=== PATIENT | male | born 1950 | race Caucasian/White ===

== ENCOUNTER 2022-11-23 12:37 | Outpatient (CLI) | payer MEDICARE, OTHER, SELFPAY ==
[2022-11-23 13:10] LABS: Basophils Percent Auto 0.8 % (0.2-1.2); Eosinophils Absolute Auto 0.1 K/mm3 (0-0.3); Eosinophils Percent Auto 2.7 % (0-4.4); Hematocrit 42.2 % (42.0-52.0); Hemoglobin 13.7 g/dL (14.0-18.0); Immature Granulocyte Absolute 0.01 K/mm3 (0.00-0.031); Immature Granulocyte Percent A 0.2 % (0-0.5); Lymphocytes Absolute Auto 1.06 K/mm3 (0.9-3.2); Lymphocytes Percent Auto 21.6 % (18.3-44.2); Mean Corpuscular HGB Conc 32.5 g/dl (32-36); Mean Corpuscular Hemoglobin 29.2 pg (26-34); Mean Platelet Volume 10.6 fl (7.4-10.4); Monocytes Absolute Auto 0.5 K/mm3 (0.1-0.6); Monocytes Percent Auto 9.6 % (2.6-8.5); Neutrophils Absolute Auto 3.2 K/mm3 (1.3-6.7); Neutrophils Percent Auto 65.1 % (45.5-73.1); Platelet Count Result 150 k/mm3 (150-375); Red Blood Count 4.69 M/mm3 (4.6-6.20); Red Cell Distribution Width 14.4 % (11.5-14.5); White Blood Count 4.9 K/mm3 (4.5-10.0)
[2022-11-23 13:23] LABS: Alanine Aminotransferase 13 U/L (6-50); Albumin Level 4.1 g/dL (3.5-5.1); Alkaline Phosphatase 122 U/L (38-126); Anion Gap 5 mmol/L (8-16); Aspartate Amino Transferase 51 U/L (17-59); Bilirubin,Total 1.2 mg/dL (0.2-1.3); Blood Urea Nitrogen 19 mg/dL (9-20); Calcium 9.8 mg/dL (8.4-10.2); Carbon Dioxide 31 mmol/L (22-30); Chloride 104 mmol/L (98-107); Cholesterol 150 mg/dL (0-200); Estimated Glomerular Filt Rate 59; Glucose 92 mg/dL (65-110); HDL Direct 76 mg/dL; Potassium 4.1 mmol/L (3.4-5.0); Sodium 140 mmol/L (137-145); Triglycerides 45 mg/dL (<150)
[2022-11-23 13:35] LABS: LDL Cholesterol Direct 49 mg/dL
== END 2022-11-23 12:38 | disposition home or self-care (01) ==
PROVIDERS: PCP Family Medicine; Visit Provider Family Medicine
DX: E03.9 Hypothyroidism, unspecified (principal); E78.2 Mixed hyperlipidemia; I10 Essential (primary) hypertension
CPT/HCPCS: 36415; 80053; 80061; 84443; 85025

== ENCOUNTER 2022-11-28 15:54 | Outpatient (CLI) | payer MEDICARE, OTHER, SELFPAY ==
--- NOTE | ~2022-11-28 | CT_ITS ---
Non-contrast Head CT History: Head injury Technique: Axial non-contrast imaging of the brain was performed. Dose reduction technique was used on this scan by utilizing automated exposure control and iterative reconstruction technique. The dose -length product (DLP) was 605.33 mGy-cm. Findings: There is no evidence of intracranial hemorrhage, mass lesion, or acute infarct. Brain par enchyma appears normal. The ventricles and subarachnoid spaces are normal in size. The calvarium ap pears normal. Mild bilateral ethmoid sinus disease noted. The remaining visualized paranasal sinuses and mastoid air cells are clear. Impression: No intracranial abnormality seen. Mild sinus disease, as above. Reviewed, dictated and finalized at location . Impression: No intracranial abnormality seen. Mild sinus disease, as above.
== END 2022-11-28 15:55 | disposition home or self-care (01) ==
PROVIDERS: PCP Family Medicine; Visit Provider Family Medicine
DX: G20 Parkinson's disease (principal); J32.9 Chronic sinusitis, unspecified
CPT/HCPCS: 70450

== ENCOUNTER 2023-01-24 12:26 | Outpatient (CLI) | payer MEDICARE, OTHER, SELFPAY ==
[2023-01-24 13:06] LABS: Basophils Absolute Auto 0.1 K/mm3 (0.0-0.1); Eosinophils Absolute Auto 0.1 K/mm3 (0-0.3); Eosinophils Percent Auto 2.4 % (0-4.4); Hemoglobin 13.1 g/dL (14.0-18.0); Immature Granulocyte Absolute 0.01 K/mm3 (0.00-0.031); Immature Granulocyte Percent A 0.2 % (0-0.5); Lymphocytes Absolute Auto 0.86 K/mm3 (0.9-3.2); Lymphocytes Percent Auto 17.5 % (18.3-44.2); Mean Corpuscular HGB Conc 32.8 g/dl (32-36); Mean Corpuscular Hemoglobin 29.6 pg (26-34); Mean Corpuscular Volume 90.3 fl (80-100); Mean Platelet Volume 10.4 fl (7.4-10.4); Monocytes Absolute Auto 0.7 K/mm3 (0.1-0.6); Monocytes Percent Auto 14.3 % (2.6-8.5); Neutrophils Absolute Auto 3.2 K/mm3 (1.3-6.7); Neutrophils Percent Auto 64.6 % (45.5-73.1); Platelet Count Result 162 k/mm3 (150-375); Red Blood Count 4.43 M/mm3 (4.6-6.20); Red Cell Distribution Width 13.4 % (11.5-14.5); White Blood Count 4.9 K/mm3 (4.5-10.0)
== END 2023-01-24 12:27 | disposition home or self-care (01) ==
PROVIDERS: PCP Family Medicine; Visit Provider Physician Assistant
DX: D64.9 Anemia, unspecified (principal)
CPT/HCPCS: 36415; 85025

== ENCOUNTER 2023-01-27 15:26 | Outpatient (CLI) | payer MEDICARE, OTHER, SELFPAY ==
[2023-01-27 16:32] LABS: Iron 66 ug/dL (49-181)
[2023-01-27 16:41] LABS: Percent Iron Saturation 23 % (20-50)
[2023-02-01 14:16] LABS: Red Blood Cell Folate 514 ng/mL RBC (>280)
== END 2023-01-27 15:27 | disposition home or self-care (01) ==
PROVIDERS: PCP Family Medicine; Visit Provider Physician Assistant
DX: D64.9 Anemia, unspecified (principal)
CPT/HCPCS: 36415; 82607; 82747; 83540; 83550

== ENCOUNTER 2023-03-29 01:23 | Day surgery (SDC) | payer MEDICARE, OTHER, SELFPAY ==
[2023-03-17 16:17] VITALS: BMI 26.5
[2023-03-29 10:23] VITALS: BP 135/75; PULSE 67; RESP 18; TEMP 36.7; O2SAT 100
[2023-03-29] MEDS: LACTATED RINGERS 1,000 ML 150 ML IV CONT (10:37)
--- NOTE | 2023-03-29 11:12 | WPDANESEPPF ---
Anes - Initial Pre Proc Eval Procedure: Operation Date: 03/29/23 11:30 Proposed Procedures p Colonoscopy - Eric Heart MD Date/Time: 03/29/23 11:12 Surgeon: Eric Heart MD Pre Op Diagnosis: other fecal abnormalities Patient Data Age: 72 Gender: M Height: 1.78 m Weight: 84 kg Last Vital Signs Temp 98.1 F 03/29/23 10:23 Pulse 67 03/29/23 10:23 Resp 18 03/29/23 10:23 BP 135/75 03/29/23 10:23 Pulse Ox 100 03/29/23 10:23 O2 Del Method Room Air 03/29/23 10:23 Allergies Allergy/AdvReac Type Severity Reaction Status Date / Time Penicillins Allergy Intermediate rash Verified 03/29/23 10:22 quetiapine [From Seroquel] AdvReac Severe Agitated Verified 03/29/23 10:22 Home Medications Medication Instructions Recorded Confirmed Type atorvastatin 40 mg tablet 40 mg PO DAILY #90 tabs 12/26/22 03/24/23 Rx carbidopa 25 mg-levodopa 100 mg 1 tablet PO TID 03/17/23 03/24/23 History tablet ferrous sulfate 325 mg (65 mg 325 mg PO DAILY 03/17/23 03/24/23 History iron) tablet clonazepam 0.5 mg tablet 0.25 mg PO QHS #30 tabs 03/24/23 03/24/23 Rx sertraline 50 mg tablet 50 mg PO DAILY #90 tabs 03/24/23 03/24/23 Rx Patient hx anesthesia problems: none Family hx anesthesia problems: none Results Review: All pre-operative results and documents have been reviewed as part of the pre-operative evaluation. [facility] Past Medical History Medical History (Updated 03/24/23 @ 12:25 by Anuradha Lomas MD) Benign essential HTN CAD (coronary artery disease), [place] coronary artery Delusional disorder History of heart attack Hyperlipidemia MDD (major depressive disorder) Parkinson disease Surgical History Surgical History Hx of coronary angioplasty stent to LAD 2012 Family History Family History Father Heart disease Mother Hypertension Sibling Heart disease Social History Social History Social History: Smoking status: Never smoker Second hand tobacco smoke exposure: No Alcohol intake: never Substance use: never Substance use type: does not use Lack of Transportation: No Lack of Food: Never True Current Housing: I Have Housing Concerned About Future Housing: No Difficulty Paying Gas/Electric Bills: No Difficulty Paying for Meds: No Currently Unemployed: YES Education: Decline to Answer Difficulty w/ Childcare or Family Care: No Living arrangements: with family Occupation/Education: retired Gender identity (if verbalized by the patient): Male Sexual Orientation (if Verbalized by the Patient): Straight or Heterosexual Spiritual care concerns: No Agree to blood products: Yes Anes - Eval Final PreProcedure Day of Procedure 03/29/23 11:12 Patient weight: normal Heart: regular rate and rhythm Lungs: clear to auscultation Airway: Mallampati scale class II Neurological: alert and oriented Last oral intake: >/= 8 hours ASA classification: III Emergent: no Anesthetic plan: proceed Anesthesia type and monitoring: general GIVS and standard monitoring Results Review: All pre-operative results and documents have been reviewed as part of the pre-operative evaluation. Informed Consent: The patient's anesthetic plan and its attendant risks and benefits were discussed with the patient/family/POA. Questions were solicited and answers provided to the satisfaction of the patient/family/POA.
--- NOTE | 2023-03-29 11:28 | PM.HPGS ---
History of Present Illness History of Present Illness Consent: Risks, benefits, and alternatives have been discussed and questions answered. Patient agrees to proceed with procedure. Chief complaint: other fecal abnormalities Narrative: Syed Aquino is a 72 year old male with last colonoscopy 10 years ago, had + cologuard recently Review of Systems Constitutional: Constitutional: Denies headache(s) and Denies weakness Eyes: Eyes: Denies blurry vision ENT: Reports Normal hearing present, Denies headache(s) and Denies neck pain Cardiovascular: Cardiovascular: Denies chest pain and Denies dyspnea Respiratory: Respiratory: Denies dyspnea Gastrointestinal: Gastrointestinal: Reports no additional gastrointestinal complaints Genitourinary: Genitourinary: Denies dysuria Musculoskeletal: Musculoskeletal: Denies neck pain Integumentary/Breasts: Skin/Breast: Denies dry skin Neurologic: Reports Normal hearing present, Denies headache(s) and Denies weakness Psychiatric: Psychiatric: Denies anxiety Endocrine: Endocrine: Denies change in body appearance Hematologic/Lymphatic: Hematologic/Lymphatic: Denies easy bleeding Allergic/Immunologic: Allergic/Immunologic: Denies urticaria PMF Past Medical History Medical History (Updated 03/24/23 @ 12:25 by Anuradha Lomas MD) Benign essential HTN CAD (coronary artery disease), [place] coronary artery Delusional disorder History of heart attack Hyperlipidemia MDD (major depressive disorder) Parkinson disease Surgical History Surgical History Hx of coronary angioplasty stent to LAD 2012 Family History Family History Father Heart disease Mother Hypertension Sibling Heart disease Social History Social History Social History: Smoking status: Never smoker Second hand tobacco smoke exposure: No Alcohol intake: never Substance use: never Substance use type: does not use Lack of Transportation: No Lack of Food: Never True Current Housing: I Have Housing Concerned About Future Housing: No Difficulty Paying Gas/Electric Bills: No Difficulty Paying for Meds: No Currently Unemployed: YES Education: Decline to Answer Difficulty w/ Childcare or Family Care: No Living arrangements: with family Occupation/Education: retired Gender identity (if verbalized by the patient): Male Sexual Orientation (if Verbalized by the Patient): Straight or Heterosexual Spiritual care concerns: No Agree to blood products: Yes Meds Home Medications and Allergies Home Medications Medication Instructions Recorded Confirmed Type atorvastatin 40 mg tablet 40 mg PO DAILY #90 tabs 12/26/22 03/24/23 Rx carbidopa 25 mg-levodopa 100 mg 1 tablet PO TID 03/17/23 03/24/23 History tablet ferrous sulfate 325 mg (65 mg 325 mg PO DAILY 03/17/23 03/24/23 History iron) tablet clonazepam 0.5 mg tablet 0.25 mg PO QHS #30 tabs 03/24/23 03/24/23 Rx sertraline 50 mg tablet 50 mg PO DAILY #90 tabs 03/24/23 03/24/23 Rx Allergies Allergy/AdvReac Type Severity Reaction Status Date / Time Penicillins Allergy Intermediate rash Verified 03/29/23 10:22 quetiapine [From Seroquel] AdvReac Severe Agitated Verified 03/29/23 10:22 Vital Signs Vital Signs - 24 hr 03/29/23 10:23 Temperature 98.1 F Pulse Rate 67 Respiratory Rate 18 Blood Pressure 135/75 Pulse Oximetry 100 Oxygen Delivery Room Air Exam Const: General: comfortable and no acute distress HENMT: Face/Nose/Sinus: Normal nares present Eyes: General: appearance normal, both eyes and all related structures Neck: Neck: no JVD Resp: Auscultation: clear to auscultation bilaterally Cardio: Rate: regular rate Rhythm: regular rhythm GI: Inspection: non-distended GI Palp: Yes Soft to palpation Skin: Genera
[2023-03-29 12:11] VITALS: BP 161/78; PULSE 68; RESP 13; O2SAT 98
[2023-03-29 12:21] VITALS: BP 180/82; PULSE 67; RESP 13; O2SAT 99
[2023-03-29 12:31] VITALS: BP 155/123; PULSE 68; RESP 16; O2SAT 99
--- NOTE | 2023-03-29 14:28 | SUR.PHASEII ---
Dr Dang made aware of hypertension. Instructed patient to go home and take home medications.
== END 2023-03-29 13:08 | disposition home or self-care (01) ==
PROVIDERS: PCP Family Medicine; Visit Provider Internal Medicine Gastroenterology
PROC: 0DJD8ZZ Inspection of Lower Intestinal Tract, Via Natural or Artificial Opening Endoscopic (ICD-10-PCS; CPT 45378; principal; 2023-03-29 11:30)
DX: R19.5 Other fecal abnormalities (principal); D12.2 Benign neoplasm of ascending colon; D12.5 Benign neoplasm of sigmoid colon; K64.8 Other hemorrhoids; I10 Essential (primary) hypertension; I25.10 Atherosclerotic heart disease of native coronary artery without angina pectoris; I25.2 Old myocardial infarction; E78.5 Hyperlipidemia, unspecified; G20 Parkinson's disease; F32.9 Major depressive disorder, single episode, unspecified
CPT/HCPCS: 45385; 88305; J2704; J7120

== ENCOUNTER 2024-04-08 16:03 | Outpatient (CLI) | payer MEDICARE, OTHER, SELFPAY ==
--- NOTE | ~2024-04-08 | XR_ITS ---
XR knee RT 3V Ordering provider: Elisabeth Jones PA-C History: . No injury right knee pain - difficult patient . Comparison: None. FINDINGS: BONES: No acute fracture or dislocation. Sclerotic area in the proximal metaphysis of the right tibia .. Follow-up advised. JOINT SPACES: Severe narrowing of the lateral compartment. Calcification the medial meniscus. SOFT TISSUES: Normal. IMPRESSION: No acute osseous abnormality right knee. Severe osteoarthritic changes. Reviewed, dictated and finalized at location A.
== END 2024-04-08 16:04 ==
PROVIDERS: PCP Family Medicine; Visit Provider Physician Assistant
DX: M17.11 Unilateral primary osteoarthritis, right knee (principal)
CPT/HCPCS: 73562

== ENCOUNTER 2024-05-16 11:12 | Outpatient (CLI) | payer MEDICARE, OTHER, SELFPAY ==
--- NOTE | ~2024-05-16 | XR_ITS ---
EXAMINATION: XR chest 2V 05/16/2024 12:12 INDICATION: Cough PROCEDURE: 2 view chest COMPARISON: No prior studies for comparison. FINDINGS: The lungs are clear. The cardiomediastinal silhouette is within normal limits. There are no pleural effusions. There is no pneumothorax suspected. IMPRESSION: 1: NO ACUTE CARDIOPULMONARY DISEASE. Reviewed, dictated and finalized at location B.
[2024-05-16 12:27] LABS: Hematocrit 40.2 % (42.0-52.0); Hemoglobin 13.3 g/dL (14.0-18.0); Mean Corpuscular HGB Conc 33.1 g/dl (32-36); Mean Corpuscular Hemoglobin 30.4 pg (26-34); Mean Corpuscular Volume 91.8 fl (80-100); Mean Platelet Volume 9.7 fl (7.4-10.4); Platelet Count Result 177 k/mm3 (150-375); Red Blood Count 4.38 M/mm3 (4.6-6.20); Red Cell Distribution Width 12.8 % (11.5-14.5); White Blood Count 5.7 K/mm3 (4.5-10.0)
[2024-05-16 12:45] LABS: Alanine Aminotransferase 7 U/L (6-50); Albumin Level 4.2 g/dL (3.5-5.1); Alkaline Phosphatase 124 U/L (38-126); Anion Gap 6 mmol/L (4-12); Aspartate Amino Transferase 46 U/L (17-59); Bilirubin,Total 0.9 mg/dL (0.2-1.3); Blood Urea Nitrogen 21 mg/dL (9-20); Calcium 9.6 mg/dL (8.4-10.2); Carbon Dioxide 32 mmol/L (22-30); Chloride 103 mmol/L (98-107); Cholesterol 166 mg/dL (0-200); Estimated Glomerular Filt Rate > 60; Glucose 106 mg/dL (65-110); HDL Direct 88 mg/dL; Potassium 4.1 mmol/L (3.4-5.0); Sodium 141 mmol/L (137-145); Triglycerides 60 mg/dL (<150)
[2024-05-16 12:55] LABS: LDL Cholesterol Direct 57 mg/dL
== END 2024-05-16 11:13 | disposition home or self-care (01) ==
PROVIDERS: PCP Family Medicine; Visit Provider Physician Assistant
DX: R05.9 Cough, unspecified (principal); I10 Essential (primary) hypertension; E78.5 Hyperlipidemia, unspecified; I25.10 Atherosclerotic heart disease of native coronary artery without angina pectoris; D50.9 Iron deficiency anemia, unspecified
CPT/HCPCS: 36415; 71046; 80053; 80061; 85027

== ENCOUNTER 2024-06-26 15:29 | Outpatient (CLI) | payer MEDICARE, OTHER, SELFPAY ==
[2024-06-28 16:18] LABS: Red Blood Cell Folate 455 ng/mL RBC (>280)
[2024-06-30 10:53] LABS: Vitamin D 1,25 (OH)2 Total 41 pg/mL (18-72); Vitamin D2 1,25 (OH)2 <8 pg/mL; Vitamin D3 1,25 (OH)2 41 pg/mL
[2024-07-01 07:18] LABS: Methylmalonic Acid 588 nmol/L (69-390)
== END 2024-06-26 15:30 | disposition home or self-care (01) ==
PROVIDERS: PCP Family Medicine; Visit Provider Psychiatry & Neurology Neurology
DX: G47.52 REM sleep behavior disorder (principal); G31.83 Neurocognitive disorder with Lewy bodies; F02.80 Dementia in other diseases classified elsewhere, unspecified severity, without behavioral disturbance, psychotic disturbance, mood disturbance, and anxiety; R44.3 Hallucinations, unspecified; G20.C Parkinsonism, unspecified; E55.9 Vitamin D deficiency, unspecified
CPT/HCPCS: 36415; 82607; 82652; 82747; 83921

== ENCOUNTER 2024-07-02 12:33 | Outpatient (CLI) | payer MEDICARE, OTHER, SELFPAY ==
--- NOTE | ~2024-07-02 | US_ITS ---
EXAMINATION: US venous doppler [facility] DATE: 07/02/2024 14:41 INDICATION: Lower limb localized edema. Lower limb pain. TECHNIQUE: Grayscale ultrasound images without and with compression and Doppler ultrasound images of the bilateral lower extremity veins were obtained. COMPARISON: None. FINDINGS: The visualized portions of right common femoral vein, profunda (deep) femoral vein, femoral vein, pop liteal vein, peroneal veins, posterior tibial veins, and greater saphenous vein outflow are patent. The visualized portions of left common femoral vein, profunda femoral vein, femoral vein, popliteal v ein, peroneal veins, posterior tibial veins, and greater saphenous vein outflow are patent. IMPRESSION: 1. No deep venous thrombosis. Reviewed, dictated and finalized at location A.
--- NOTE | 2024-07-02 12:59 | ECHO_ITS ---
Patient Info Name: Syed Aquino Age: 74 years : 1950 Gender: Male Ht: 70 in Wt: 211 lbs BSA: 2.20 m2 HR: 62 bpm BP: 169 / 99 mmHg Heart Rhythm: Sinus Rhythm Technical Quality: Good Exam Date: 07/02/2024 1:17 PM Exam Location: Echo Lab Patient Status: Outpatient Admit Date: 07/02/2024 Staff Ordering Physician: Luiz Zhu DO [employer]: Kinjal Singh RDCS Attending Provider: Elisabeth Jones PA-C Referring Physician: Marko INGRAM; Exam Type: CA echo doppler color flow Study Info Indications I25.110 - Atherosclerotic heart disease of [place] coronary artery with unstable angina pectoris Complete two-dimensional, color flow and Doppler transthoracic echocardiogram is performed. Summary 1. Complete two-dimensional, color flow and Doppler transthoracic echocardiogram is performed. 2. Left ventricular chamber dimension is normal. 3. Left ventricular systolic function is normal, estimated at 55-60%. 4. There is mild concentric increased left ventricular wall thickness. 5. The left ventricular diastolic function is abnormal. 6. E/e' 11 is mildly elevated. 7. Left atrial chamber dimension is mildly enlarged. 8. There is mild aortic valve sclerosis. 9. There is trace aortic valve regurgitation. 10. The mitral valve has mildly calcified annulus. 11. There is mild mitral valve regurgitation. 12. There is trace pulmonic regurgitation. Left Ventricle E/e' 11 is mildly elevated. Left ventricular chamber dimension is normal. Left ventricular systolic function is normal, estimated at 55-60%. There is mild concentric increased left ventricular wall thickness. The left ventricular diastolic function is abnormal. Right Ventricle Right ventricular systolic function is normal and with normal TAPSE 2.4 cm. Right ventricular chamber dimension is normal. Left Atria Left atrial chamber dimension is mildly enlarged. Right Atria Right atrial chamber dimension is normal. Aortic Valve The aortic valve is trileaflet. There is mild aortic valve sclerosis. There is no aortic valve stenosis. There is trace aortic valve regurgitation. Pulmonic Valve There is trace pulmonic regurgitation. Mitral Valve The mitral valve has mildly calcified annulus. There is no mitral valve stenosis. There is mild mitral valve regurgitation. Tricuspid Valve There is no tricuspid valve regurgitation. Pericardium/Pleural There is no pericardial effusion. Inferior Vena Cava Normal inferior vena cava with >50% collapse upon inspiration consistent with normal right atrial pressure, 5 mmHg. Aorta The aortic root size at the sinus of Valsalva is normal. Left Ventricular Outflow Tract Name Value Normal LVOT 2D LVOT Diameter 2.0 cm LVOT Doppler LVOT Peak Gradient 3 mmHg LVOT Mean Gradient 2 mmHg LVOT VTI 20 cm LVOT VTI/AV VTI Ratio 0.7 LVOT Stroke Volume 66 ml LVOT CO 4.0 l/min LVOT CI 1.8 l/min/m2 Pulmonic Valve Nam
== END 2024-07-02 12:34 | disposition home or self-care (01) ==
PROVIDERS: PCP Family Medicine; Visit Provider Physician Assistant
DX: I25.10 Atherosclerotic heart disease of native coronary artery without angina pectoris (principal); R60.0 Localized edema; I35.8 Other nonrheumatic aortic valve disorders; I34.81 Nonrheumatic mitral (valve) annulus calcification; I50.30 Unspecified diastolic (congestive) heart failure
CPT/HCPCS: 93306; 93970

== ENCOUNTER 2025-01-17 16:20 | Emergency (ER) | payer MEDICARE, OTHER, SELFPAY ==
[2025-01-17 17:01] VITALS: BP 140/70; PULSE 76; RESP 16; TEMP 36.8; O2SAT 98
--- NOTE | 2025-01-17 17:49 | ED_ITS ---
HPI - Male Genitourinary General Chief complaint: Urogenital-Male <Liila Oconnor III, DO - Last Filed: 01/21/25 15:32> Stated complaint: Blood in urine-sent by PMD <Lilia Oconnor III, DO - Last Filed: 01/21/25 15:32> Time Seen by Provider: 01/17/25 17:45 <Lilia Oconnor III, DO - Last Filed: 01/21/25 15:32> History of Present Illness HPI Narrative: Pt presents with dysuria and frequency and hematuria. Pt denies abdominal pain. Pt on aspirin but no other blood thinners. Pt denies fever or chills. < Lilia Oconnor III, DO - Last Filed: 01/21/25 15:32> Related Data Home medications: Home Medications ?Medication ?Instructions ?Recorded ?Confirmed ?Last Taken ?Type ferrous sulfate 325 mg (65 mg 325 mg PO DAILY 03/17/23 12/05/24 Unknown History iron) tablet aspirin 81 mg tablet,delayed 81 mg PO DAILY 06/06/24 12/05/24 Unknown History release <Lilia Oconnor III, DO - Last Filed: 01/21/25 15:32> Allergies/Adverse reactions: Allergies Allergy/AdvReac Type Severity Reaction Status Date / Time Penicillins Allergy Intermediate rash Verified 01/17/25 16:21 quetiapine (From Seroquel) AdvReac Severe Agitated Verified 01/17/25 16:21 <Lilia Oconnor III, DO - Last Filed: 01/21/25 15:32> Review of Systems 2 Review of Systems: All systems reviewed & are unremarkable except as noted in HPI and below <Lilia Oconnor III, DO - Last Filed: 01/21/25 15:32> PMFSH Past Medical History Medical History: Medical History REM behavioral disorder Delusional disorder History of heart attack CAD (coronary artery disease), [place] coronary artery MDD (major depressive disorder) Hyperlipidemia Benign essential HTN Parkinson disease <Lilia Oconnor III, DO - Last Filed: 01/21/25 15:32> Surgical History Surgical History: Surgical History Hx of coronary angioplasty stent to LAD 2012 <Lilia Siddharth Oconnor III, DO - Last Filed: 01/21/25 15:32> Family History Family History: Family History Father Heart disease Mother Hypertension Sibling Heart disease <Liliarodriguez Messina Oconnor III, DO - Last Filed: 01/21/25 15:32> Social History Social History: Social History Social History: Smoking status: Never smoker Second hand tobacco smoke exposure: No Alcohol intake: current Alcohol use details: Occasional Substance use: never Substance use type: does not use Do You Feel Safe in your Home?: Yes Lack of Transportation: No Lack of Food: Never True Current Housing: I Have Housing Concerned About Future Housing: No Difficulty Paying Gas/Electric Bills: No Difficulty Paying for Meds: No Currently Unemployed: No Education: Decline to Answer Difficulty w/ Childcare or Family Care: No Living arrangements: with family Occupation/Education: retired Gender identity (if verbalized by the patient): Male Sexual Orientation (if Verbalized by the Patient): Straight or Heterosexual Spiritual care concerns: No Agree to blood products: Yes <Liliarodriguez Messina Oconnor III, DO - Last Filed: 01/21/25 15:32> Exam 2 Const: General: healthy appearing and no acute distress <Lilia Siddharth Oconnor III, DO - Last Filed: 01/21/25 15:32> Nutritional Appearance: well nourished <Liliarodriguez Messina Oconnor III, DO - Last Filed: 01/21/25 15:32> Resp: Effort & Inspection: normal respiratory effort <Lilia Siddharth Oconnor III, DO - Last Filed: 01/21/25 15:32> Auscultation: clear to auscultation bilaterally <Lilia Siddharth Oconnor III, DO - Last Filed: 01/21/25 15:32> Cardio: Rate: regular rate <Lilia Siddharth Oconnor III, DO - Last Filed: 01/21/25 15:32> Rhythm: regular rhythm <Lilia Isddharth Oconnor III, DO - Last Filed: 01/21/25 15:32> GI: GI Palp: Yes Soft to palpation and No Tenderness to palpation present (GI) <Lilia Siddharth Oconnor III, DO - Last Filed: 01/21/25 15:32> Auscultation: normal bowel sounds <Lilia Siddharth Oconnor III, DO - Last Filed: 01/21/25 15:32> : General: Yes bladder normal to palpation and Yes no CVA tenderness < Lilia Siddharth Oconnor III, DO - Last Filed: 01/21/25 15:32> Back/Spine/Pelvis: Back: no CVA tenderness <Lilia Siddharth Oconnor III, DO - Last Filed: 01/21/25 15:32> Skin: General skin exam: normal color <Lilia Siddharth Oconnor III, DO - Last Filed: 01/21/25 15:32> Rashes: no rashes <Lilia Siddharth Oconnor III, DO - Last Filed: 01/21/25 15:32> Neuro: General: moves all extremities and no focal motor deficits <Lilia Siddharth Oconnor III, DO - Last Filed: 01/21/25 15:32> Extrem: General: normal to inspection and no clubbing, cyanosis or edema < Lilia Siddharth Oconnor III, DO - Last Filed: 01/21/25 15:32> Psych: Mental Status: mental status grossly normal <Lilia Siddharth Oconnor III, DO - Last Filed: 01/21/25 15:32> Course Vital Signs Vital signs: Vital Signs Temperature 98.2 F 01/17/25 17:01 Pulse Rate 76 01/17/25 17:01 Respiratory Rate 16 01/17/25 17:01 Blood Pressure 140/70 01/17/25 17:01 Pulse Oximetry 98 01/17/25 17:01 Temperature 97.8 F 01/17/25 18:01 Pulse Rate 71 01/17/25 19:55 Respiratory Rate 16 01/17/25 19:55 Blood Pressure 180/87 H 01/17/25 19:55 Pulse Oximetry 98 01/17/25 19:55 <Lilia Siddharth Oconnor III, DO - Last Filed: 01/21/25 15:32> Vital Signs Temperature 98.2 F 01/17/25 17:01 Pulse Rate 76 01/17/25 17:01 Respiratory Rate 16 01/17/25 17:01 Blood Pressure 140/70 01/17/25 17:01 Pulse Oximetry 98 01/17/25 17:01 Temperature 97.8 F 01/17/25 18:01 Pulse Rate 71 01/17/25 19:55 Respiratory Rate 16 01/17/25 19:55 Blood Pressure 180/87 H 01/17/25 19:55 Pulse Oximetry 98 01/17/25 19:55 <Jyoti Wetzel MD - Last Filed: 01/17/25 19:13> MDM - Male Genitourinary MDM Narrative Medical decision making narrative: Pt presents with dysuria and frequency with hematuria. will check labs and ua suspect uti. labs fine but UA still pending. will sign out ot Dr Wetzel pending ua. <Lilia Oconnor III, DO - Last Filed: 01/21/25 15:32> Pt presents with dysuria and frequency with hematuria. will check labs and ua suspect uti. labs fine but UA still pending. will sign out ot Dr Wetzel pending ua. Baljinderir: Patient was signed out to me pending remainder of the workup. The patient was evaluated by myself in the emergency department. History is obtained from patient who is an independent historian and physical exam was performed. External medical records were reviewed at this time. IV was established and pertinent tests were ordered. Patient was administered 200 mg of p.o. peridium. Laboratory results obtained revealing no acute process. Urinalysis revealed 4+ bacteria, trace ketones, greater with than 100 RBCs. Patient was informed of these findings at bedside. Instructed that he will be started on an antibiotic given that he is symptomatic with 4+ bacteria. Patient was administered his 1st dose of antibiotic cephalexin in the emergency department. Was also instructed that he will need to follow-up with urology and that he will be provided with a referral. Differential diagnosis considerations include cystitis, nephrolithiasis, urinary tract infection, dehydration. Comorbidities impacting this visit include none. I have evaluated and discussed social determinants of health with the patient that could potentially impact subsequent diagnosis and treatment plans. On repeat assessment of the patient, reevaluation revealed that the patient is doing well and is in no acute distress. Patient symptoms have improved since [he/she] arrived to our emergency department. Repeat vital signs were all reviewed and noted to be stable. Differential diagnosis and treatment plan were discussed with the patient at bedside. Patient agrees with discussion and after shared medical decision making agrees with discharge. All questions were answered to the patient's satisfaction. Patient will follow up with Urology in 3-5 days. Script for cephalexin was sent to patient's pharmacy to take as prescribed for his symptomatic bacteriuria. Patient was provided with strict return precautions and instructed to return to the emergency department if any new or worsening symptoms develop. The patient was discharged in stable condition. <Jyoti Wetzel MD - Last Filed: 01/17/25 19:13> Lab Data Result diagrams: 01/17/25 17:55 01/17/25 17:55 <Lilia Oconnor III, DO - Last Filed: 01/21/25 15:32> Labs: Lab Results 01/17/25 01/17/25 Range/Units 17:39 17:55 WBC 8.7 (4.5-10.0) K/mm3 RBC 4.28 L (4.6-6.20) M/mm3 Hgb 12.7 L (14.0-18.0) g/dL Hct 39.3 L (42.0-52.0) % MCV 91.8 (80-100) fl MCH 29.7 (26-34) pg MCHC 32.3 (32-36) g/dl RDW 12.9 (11.5-14.5) % Plt Count 167 (150-375) k/mm3 MPV 10.0 (7.4-10.4) fl Immature Gran % (Auto) 0.2 (0-0.5) % Neut % (Auto) 81.4 H (45.5-73.1) % Lymph % (Auto) 9.5 L (18.3-44.2) % [place] % (Auto) 7.8 (2.6-8.5) % Eos % (Auto) 0.5 (0-4.4) % Baso % (Auto) 0.6 (0.2-1.2) % Lymph # (Auto) 0.83 L (0.9-3.2) K/mm3 [place] # (Auto) 0.7 H (0.1-0.6) K/mm3 Eos # (Auto) 0.0 (0-0.3) K/mm3 Baso # (Auto) 0.1 (0.0-0.1) K/mm3 Abs Immat Gran (auto) 0.02 (0.00-0.031) K/mm3 Absolute Neuts (auto) 7.1 H (1.3-6.7) K/mm3 Absolute Nucleated RBC 0.000 (0.0-0.012) K/mm3 Nucleated RBC % 0.0 (0.0-0.2) % PT 13.7 (11.1-14.7) Seconds INR 1.0 APTT 26.1 (22.3-36.8) Seconds Sodium 140 (137-145) mmol/L Potassium 4.1 (3.4-5.0) mmol/L Chloride 106 (98-107) mmol/L Carbon Dioxide 27 (22-30) mmol/L Anion Gap 7 (4-12) mmol/L BUN 22 H (9-20) mg/dL Creatinine 0.92 (0.7-1.3) mg/dL Estim Creat Clear Calc 57 ml/min Estimated GFR > 60 (59 - ) Glucose 105 (65-110) mg/dL Calcium 9.6 (8.4-10.2) mg/dL Total Bilirubin 1.1 (0.2-1.3) mg/dL AST 65 H (17-59) U/L ALT 17 (6-50) U/L Alkaline Phosphatase 142 H (38-126) U/L Total Protein 7.0 (6.3-8.2) g/dL Albumin 4.1 (3.5-5.1) g/dL Urine Color Dark yellow (Yellow) Urine Appearance Cloudy H (Clear) Urine pH 6.5 (5.0-9.0) Ur Specific [place] 1.029 (1.001-1.035) Urine Protein Trace (Negative) mg/dL Urine Glucose (UA) Negative (Negative) mg/dL Urine Ketones Trace H (Negative) mg/dL Ur Blood (Man) Negative (Negative) Urine Nitrate Negative (Negative) Urine Bilirubin Negative (Negative) Urine Urobilinogen 0.2 (<2.0) mg/dL Add Ur Microanalysis Reviewed Leukocyte Esterase Rfl Negative (Negative) ÓSCAR/UL Urine RBC >100 H (0-2) /hpf Urine WBC 0-5 (0-3) /hpf Ur Squamous Epith Cells Occasional (Few) /hpf Urine Bacteria 4+ H /hpf Urine Casts 0-2 Urine Mucus Present /lpf <Lilia Siddharth Oconnor III, DO - Last Filed: 01/21/25 15:32> Lab Results 01/17/25 01/17/25 Range/Units 17:39 17:55 WBC 8.7 (4.5-10.0) K/mm3 RBC 4.28 L (4.6-6.20) M/mm3 Hgb 12.7 L (14.0-18.0) g/dL Hct 39.3 L (42.0-52.0) % MCV 91.8 (80-100) fl MCH 29.7 (26-34) pg MCHC 32.3 (32-36) g/dl RDW 12.9 (11.5-14.5) % Plt Count 167 (150-375) k/mm3 MPV 10.0 (7.4-10.4) fl Immature Gran % (Auto) 0.2 (0-0.5) % Neut % (Auto) 81.4 H (45.5-73.1) % Lymph % (Auto) 9.5 L (18.3-44.2) % [place] % (Auto) 7.8 (2.6-8.5) % Eos % (Auto) 0.5 (0-4.4) % Baso % (Auto) 0.6 (0.2-1.2) % Lymph # (Auto) 0.83 L (0.9-3.2) K/mm3 [place] # (Auto) 0.7 H (0.1-0.6) K/mm3 Eos # (Auto) 0.0 (0-0.3) K/mm3 Baso # (Auto) 0.1 (0.0-0.1) K/mm3 Abs Immat Gran (auto) 0.02 (0.00-0.031) K/mm3 Absolute Neuts (auto) 7.1 H (1.3-6.7) K/mm3 Absolute Nucleated RBC 0.000 (0.0-0.012) K/mm3 Nucleated RBC % 0.0 (0.0-0.2) % PT 13.7 (11.1-14.7) Seconds INR 1.0 APTT 26.1 (22.3-36.8) Seconds Sodium 140 (137-145) mmol/L Potassium 4.1 (3.4-5.0) mmol/L Chloride 106 (98-107) mmol/L Carbon Dioxide 27 (22-30) mmol/L Anion Gap 7 (4-12) mmol/L BUN 22 H (9-20) mg/dL Creatinine 0.92 (0.7-1.3) mg/dL Estim Creat Clear Calc 57 ml/min Estimated GFR > 60 (59 - ) Glucose 105 (65-110) mg/dL Calcium 9.6 (8.4-10.2) mg/dL Total Bilirubin 1.1 (0.2-1.3) mg/dL AST 65 H (17-59) U/L ALT 17 (6-50) U/L Alkaline Phosphatase 142 H (38-126) U/L Total Protein 7.0 (6.3-8.2) g/dL Albumin 4.1 (3.5-5.1) g/dL Urine Color Dark yellow (Yellow) Urine Appearance Cloudy H (Clear) Urine pH 6.5 (5.0-9.0) Ur Specific [place] 1.029 (1.001-1.035) Urine Protein Trace (Negative) mg/dL Urine Glucose (UA) Negative (Negative) mg/dL Urine Ketones Trace H (Negative) mg/dL Ur Blood (Man) Negative (Negative) Urine Nitrate Negative (Negative) Urine Bilirubin Negative (Negative) Urine Urobilinogen 0.2 (<2.0) mg/dL Add Ur Microanalysis Reviewed Leukocyte Esterase Rfl Negative (Negative) ÓSCAR/UL Urine RBC >100 H (0-2) /hpf Urine WBC 0-5 (0-3) /hpf Ur Squamous Epith Cells Occasional (Few) /hpf Urine Bacteria 4+ H /hpf Urine Casts 0-2 Urine Mucus Present /lpf <Jyoti Wetzel MD - Last Filed: 01/17/25 19:13> Discharge Plan Discharge Clinical Impression: Hematuria, Bacteria in urine, Dysuria <Lilia Oconnor III, DO - Last Filed: 01/21/25 15:32> Patient Disposition: Home <Lilia Oconnor III, DO - Last Filed: 01/21/25 15:32> Condition: Improved <Lilia Oconnor III, DO - Last Filed: 01/21/25 15:32> Instructions: Antibiotic Form, Hematuria (ED), Dysuria (ED) <Lilia Oconnor III, DO - Last Filed: 01/21/25 15:32> Additional Instructions: Please follow-up with urologist you were provided with today, call on Monday to set up a follow-up appointment to be seen within the next 3-5 days. Take the prescribed antibiotic as instructed for urinary tract infection. Return to the emergency department if any new or worsening symptoms develop. <Lilia Oconnor III, DO - Last Filed: 01/21/25 15:32> Patient Language: Divehi <Lilia Oconnor III, DO - Last Filed: 01/21/25 15:32> Prescriptions: New cephalexin 500 mg capsule 500 mg PO Q6H 7 Days Qty: 28 0RF No Action aspirin 81 mg tablet,delayed release (DR/EC) 81 mg PO DAILY furosemide 40 mg tablet 20 mg PO QAM Qty: 30 1RF Nuplazid 34 mg capsule 34 mg PO DAILY Qty: 30 6RF carbidopa-levodopa 25-100 mg tablet 1 tablet PO TID Qty: 270 4RF Rx Instructions: TAKE 1 tablet TID ferrous sulfate 325 mg (65 mg iron) Tablet 325 mg PO DAILY sertraline 50 mg tablet See Rx Instructions .ROUTE .COMPLEX Qty: 270 1RF Dose Instruction: TAKE 2 TABLETS BY MOUTH IN THE MORNING THEN TAKE 1 TABLET BY MOUTH IN THE EVENING Rx Instructions: TAKE 2 TABLETS BY MOUTH IN THE MORNING THEN TAKE 1 TABLET BY MOUTH IN THE EVENING lisinopril 20 mg tablet See Rx Instructions .ROUTE .COMPLEX Qty: 180 0RF Dose Instruction: TAKE 1 TABLET BY MOUTH TWICE DAILY Rx Instructions: TAKE 1 TABLET BY MOUTH TWICE DAILY hydralazine 10 mg tablet 10 mg PO TID Qty: 90 0RF atorvastatin 40 mg tablet See Rx Instructions .ROUTE .COMPLEX Qty: 90 0RF Dose Instruction: TAKE 1 TABLET BY MOUTH DAILY Rx Instructions: TAKE 1 TABLET BY MOUTH DAILY <Lilia Oconnor III, - Last Filed: 01/21/25 15:32> Follow-up/Referrals: Saravanan Gates MD [Physician] - 3 Days Anuradha Lomas MD [Primary Care Provider] - <Lilia Oconnor III, DO - Last Filed: 01/21/25 15:32> Time of Disposition: 19:09 <Lilia Oconnor III, DO - Last Filed: 01/21/25 15:32> 19:09 <Jyoti Wetzel MD - Last Filed: 01/17/25 19:13>
[2025-01-17 18:01] VITALS: BP 175/93; PULSE 66; RESP 16; TEMP 36.6; O2SAT 100
[2025-01-17 18:02] LABS: Basophils Absolute Auto 0.1 K/mm3 (0.0-0.1); Basophils Percent Auto 0.6 % (0.2-1.2); Eosinophils Percent Auto 0.5 % (0-4.4); Hematocrit 39.3 % (42.0-52.0); Hemoglobin 12.7 g/dL (14.0-18.0); Immature Granulocyte Absolute 0.02 K/mm3 (0.00-0.031); Immature Granulocyte Percent A 0.2 % (0-0.5); Lymphocytes Absolute Auto 0.83 K/mm3 (0.9-3.2); Lymphocytes Percent Auto 9.5 % (18.3-44.2); Mean Corpuscular HGB Conc 32.3 g/dl (32-36); Mean Corpuscular Hemoglobin 29.7 pg (26-34); Mean Corpuscular Volume 91.8 fl (80-100); Monocytes Absolute Auto 0.7 K/mm3 (0.1-0.6); Monocytes Percent Auto 7.8 % (2.6-8.5); Neutrophils Absolute Auto 7.1 K/mm3 (1.3-6.7); Neutrophils Percent Auto 81.4 % (45.5-73.1); Platelet Count Result 167 k/mm3 (150-375); Red Blood Count 4.28 M/mm3 (4.6-6.20); Red Cell Distribution Width 12.9 % (11.5-14.5); White Blood Count 8.7 K/mm3 (4.5-10.0)
[2025-01-17 18:13] LABS: Prothrombin Time 13.7 Seconds (11.1-14.7)
[2025-01-17 18:14] LABS: Partial Thromboplastin Time 26.1 Seconds (22.3-36.8)
[2025-01-17 18:21] LABS: Alanine Aminotransferase 17 U/L (6-50); Albumin Level 4.1 g/dL (3.5-5.1); Alkaline Phosphatase 142 U/L (38-126); Anion Gap 7 mmol/L (4-12); Aspartate Amino Transferase 65 U/L (17-59); Bilirubin,Total 1.1 mg/dL (0.2-1.3); Blood Urea Nitrogen 22 mg/dL (9-20); Calcium 9.6 mg/dL (8.4-10.2); Carbon Dioxide 27 mmol/L (22-30); Chloride 106 mmol/L (98-107); Estimated CRCL calculation 57 ml/min; Estimated Glomerular Filt Rate > 60; Glucose 105 mg/dL (65-110); Potassium 4.1 mmol/L (3.4-5.0); Sodium 140 mmol/L (137-145)
[2025-01-17 18:30] VITALS: O2SAT 99
[2025-01-17 18:32] VITALS: BP 167/79; PULSE 68; RESP 16; O2SAT 98
[2025-01-17 19:02] LABS: Add Urine Microscopic? YES; Appearance Urine Cloudy (Clear); Bacteria Urine 4+ /hpf; Bilirubin Urine Negative (Negative); Blood Urine Negative (Negative); Color Urine Dark Yellow (Yellow); Glucose Urine UA Negative (Negative); Ketones Urine Trace mg/dL (Negative); Leukocyte Esterase Ur Negative LEU/UL (Negative); Mucus Urine Present /lpf; Need Manual Microscopic Reviewed; Nitrate Urine Negative (Negative); Non Pathogenic Casts 0-2; Protein Urine Trace mg/dL (Negative); RBC Urine >100 /hpf (0-2); Specific Grav Ur 1.029 (1.001-1.035); Squamous Epithelial Cell Urine Occasional /hpf (Few); Urobilinogen Urine 0.2 mg/dL (<2.0); WBC Urine 0-5 /hpf (0-3); pH Urine 6.5 (5.0-9.0)
[2025-01-17] MEDS: CEPHALEXIN 500 MG CAPSULE PO (19:27)
[2025-01-17] MEDS: PHENAZOPYRIDINE HCL 100 MG TABLET 200 MG PO (19:27)
[2025-01-17 19:55] VITALS: BP 180/87; PULSE 71; RESP 16; O2SAT 98
== END 2025-01-17 19:35 | disposition home or self-care (01) ==
PROVIDERS: Emergency Medicine; Emergency Provider Emergency Medicine; PCP Family Medicine
DX: R30.0 Dysuria (principal); R31.9 Hematuria, unspecified; R82.71 Bacteriuria; Z79.82 Long term (current) use of aspirin; Z79.899 Other long term (current) drug therapy
CPT/HCPCS: 36415; 80053; 81001; 85025; 85610; 85730; 99283; A9270

== ENCOUNTER 2025-01-22 11:43 | Inpatient (IN) | payer MEDICARE, OTHER, SELFPAY ==
[2025-01-22] VITALS (9 sets, daily range): BP systolic 141–205; BP diastolic 60–120; PULSE 71–100; RESP 18–20; TEMP 36.6–37.3; O2SAT 94–100; BMI 28.1
--- NOTE | ~2025-01-22 | XR_ITS ---
Clinical Indication: Chest pain PA and lateral views of the chest: Comparison: 05/16/2024 Findings: The lungs are clear, without evidence of focal consolidation or pleural effusion. Cardiome diastinal silhouette is within normal limits. Bones and soft tissues are unremarkable. Impression: Normal chest. Reviewed, dictated and finalized at location . Impression: Normal chest.
--- NOTE | 2025-01-22 11:51 | ECG_ITS ---
Test Date: 2025-01-22 11:54:42 Measurements Intervals [place] Rate: 69 P: 31 GA: 181 QRS: -24 QRSD: 110 T: 21 QT: 402 QTc: 431 Interpretive Statements SINUS RHYTHM POSSIBLE ANTERIOR MYOCARDIAL INFARCTION , OF INDETERMINATE AGE [30 ms Q WAVE IN V3/V4, OR R < 0.2 mV IN V4] No previous ECG available for comparison Electronically Signed On 01-22-2025 14:11:33 CDT by Jose Luis Fontana M.D.
[2025-01-22 12:16] LABS: Basophils Absolute Auto 0.1 K/mm3 (0.0-0.1); Basophils Percent Auto 0.5 % (0.2-1.2); Eosinophils Percent Auto 0.4 % (0-4.4); Hematocrit 40.8 % (42.0-52.0); Hemoglobin 13.2 g/dL (14.0-18.0); Immature Granulocyte Absolute 0.02 K/mm3 (0.00-0.031); Immature Granulocyte Percent A 0.2 % (0-0.5); Lymphocytes Absolute Auto 0.84 K/mm3 (0.9-3.2); Lymphocytes Percent Auto 8.9 % (18.3-44.2); Mean Corpuscular HGB Conc 32.4 g/dl (32-36); Mean Corpuscular Hemoglobin 29.2 pg (26-34); Mean Corpuscular Volume 90.3 fl (80-100); Mean Platelet Volume 10.1 fl (7.4-10.4); Monocytes Percent Auto 10.4 % (2.6-8.5); Neutrophils Absolute Auto 7.6 K/mm3 (1.3-6.7); Neutrophils Percent Auto 79.6 % (45.5-73.1); Platelet Count Result 181 k/mm3 (150-375); Red Blood Count 4.52 M/mm3 (4.6-6.20); Red Cell Distribution Width 12.7 % (11.5-14.5); White Blood Count 9.5 K/mm3 (4.5-10.0)
[2025-01-22 12:20] LABS: Add Urine Microscopic? YES; Appearance Urine Cloudy (Clear); Bacteria Urine None Seen /hpf; Bilirubin Urine Negative (Negative); Blood Urine Negative (Negative); Color Urine Yellow (Yellow); Glucose Urine UA Negative (Negative); Ketones Urine Negative (Negative); Leukocyte Esterase Ur Negative LEU/UL (Negative); Nitrate Urine Negative (Negative); Non Pathogenic Casts 0-2; Protein Urine Negative (Negative); Specific Grav Ur 1.009 (1.001-1.035); Squamous Epithelial Cell Urine None Seen /hpf (Few); Urobilinogen Urine 0.2 mg/dL (<2.0); WBC Urine 0-5 /hpf (0-3)
[2025-01-22 12:25] LABS: Alanine Aminotransferase 15 U/L (6-50); Albumin Level 4.1 g/dL (3.5-5.1); Alkaline Phosphatase 148 U/L (38-126); Anion Gap 7 mmol/L (4-12); Aspartate Amino Transferase 56 U/L (17-59); Bilirubin,Total 1.1 mg/dL (0.2-1.3); Blood Urea Nitrogen 14 mg/dL (9-20); Calcium 9.3 mg/dL (8.4-10.2); Carbon Dioxide 29 mmol/L (22-30); Chloride 103 mmol/L (98-107); Estimated CRCL calculation 69 ml/min; Estimated Glomerular Filt Rate > 60; Glucose 112 mg/dL (65-110); Sodium 139 mmol/L (137-145)
[2025-01-22 12:31] LABS: Prothrombin Time 13.3 Seconds (11.1-14.7)
[2025-01-22 12:32] LABS: Partial Thromboplastin Time 26.5 Seconds (22.3-36.8)
[2025-01-22] MEDS: MECLIZINE HCL 25 MG TABLET PO (12:55)
[2025-01-22] MEDS: HYDROGEN PEROXIDE 3% SOLN(*SP) 473 ML BOTTLE (12:59)
[2025-01-22 13:07] LABS: Troponin I 0.019 ng/mL (0.000-0.034)
--- NOTE | 2025-01-22 13:20 | ED_ITS ---
HPI - General Adult General Chief complaint: Unspecified Stated complaint: mult complaints Time Seen by Provider: 01/22/25 12:00 History of Present Illness HPI narrative: Patient is a 74-year-old male with history of dementia who is orient x2 that presents ER after having multiple complaints to his this morning. He complained of chest pain as well as dizziness and nausea vomiting. He also reported that he had some burning urination for which he has recently been treated for UTI. His last complaint is dental pain to the right side of the jaw. He is unsure if it is the upper part of his jar the lower part. He has no pain or complaints at this time. He cannot report any modifying factors to any of the symptoms that he had earlier this morning. Related Data Home Medications ?Medication ?Instructions ?Recorded ?Confirmed ?Last Taken ?Type ferrous sulfate 325 mg (65 mg 325 mg PO QPM 03/17/23 01/22/25 01/22/25 History iron) tablet aspirin 81 mg tablet,delayed 81 mg PO 1200 06/06/24 01/22/25 01/21/25 History release atorvastatin 40 mg tablet See Rx Instructions .Route .COMPLEX 01/22/25 01/22/25 01/21/25 History hydralazine 10 mg tablet 10 mg PO BID 01/22/25 01/22/25 01/22/25 History Allergies Allergy/AdvReac Type Severity Reaction Status Date / Time Penicillins Allergy Intermediate rash Verified 01/22/25 18:39 quetiapine (From Seroquel) AdvReac Severe Agitated Verified 01/22/25 18:39 Review of Systems 2 Review of Systems: ROS unobtainable: Yes unobtainable due to mental status [facility] Past Medical History Medical History REM behavioral disorder Delusional disorder History of heart attack CAD (coronary artery disease), [place] coronary artery MDD (major depressive disorder) Hyperlipidemia Benign essential HTN Parkinson disease Surgical History Surgical History Hx of coronary angioplasty stent to LAD 2012 Family History Family History Father Heart disease Mother Hypertension Sibling Heart disease Social History Social History Social History: Smoking status: Never smoker Second hand tobacco smoke exposure: Yes Alcohol intake: never Alcohol use details: Occasional Substance use: never Substance use type: does not use Do You Feel Safe in your Home?: Yes Lack of Transportation: No Lack of Food: Never True Current Housing: I Have Housing Concerned About Future Housing: No Difficulty Paying Gas/Electric Bills: No Difficulty Paying for Meds: No Currently Unemployed: No Education: Trade/Vocational Certificate Difficulty w/ Childcare or Family Care: No Living arrangements: with family Occupation/Education: retired Gender identity (if verbalized by the patient): Male Sexual Orientation (if Verbalized by the Patient): Straight or Heterosexual Spiritual care concerns: No Agree to blood products: Yes Exam 2 Narrative: GENERAL: Well-appearing, well-nourished, and in no acute distress. HEAD: Normocephalic, atraumatic. EYES: PERRL and EOMI. ENT: Mucous membranes moist. No reducible dental pain exam abscess. CHEST: Clear to auscultation. No respiratory distress. HEART: Regular rate and rhythm. Normal peripheral pulses. ABDOMEN: Soft, nontender, nondistended. EXTREMITIES: Normal range of motion. No edema. SKIN: Warm, dry, no rash. NEURO: Alert and oriented x2. PSYCH: Normal mood and affect. Course Course Emergency Course: Patient with 2- troponins however there was an increase in the delta. Admit for observation for chest pain. Patient has become more agitated in the ER he was throwing his clothing and blankets and trying to get out of bed. Unsure if this is related to his meclizine treatment. Ativan given for agitation. Vital Signs Vital signs: Vital Signs Temperature 98 F 01/22/25 11:45 Pulse Rate 71 01/22/25 11:45 Respiratory Rate 18 01/22/25 11:45 Blood Pressure 205/93 H 01/22/25 11:45 Pulse Oximetry 100 01/22/25 11:45 Oxygen Delivery Room Air 01/22/25 11:45 Temperature 99.2 F 01/22/25 18:27 Pulse Rate 98 01/22/25 20:00 Respiratory Rate 18 01/22/25 19:59 Blood Pressure 177/120 H 01/22/25 13:51 Pulse Oximetry 96 01/22/25 19:59 Oxygen Delivery Room Air 01/22/25 19:59 Medical Decision Making Vital Signs Vital Signs: Vital Signs Temperature 98 F 01/22/25 11:45 Pulse Rate 71 01/22/25 11:45 Respiratory Rate 18 01/22/25 11:45 Blood Pressure 205/93 H 01/22/25 11:45 Pulse Oximetry 100 01/22/25 11:45 Oxygen Delivery Room Air 01/22/25 11:45 Temperature 99.2 F 01/22/25 18:27 Pulse Rate 98 01/22/25 20:00 Respiratory Rate 18 01/22/25 19:59 Blood Pressure 177/120 H 01/22/25 13:51 Pulse Oximetry 96 01/22/25 19:59 Oxygen Delivery Room Air 01/22/25 19:59 Lab Data 01/22/25 12:08 01/22/25 12:08 Labs: Lab Results 01/22/25 01/22/25 Range/Units 12:08 14:55 WBC 9.5 (4.5-10.0) K/mm3 RBC 4.52 L (4.6-6.20) M/mm3 Hgb 13.2 L (14.0-18.0) g/dL Hct 40.8 L (42.0-52.0) % MCV 90.3 (80-100) fl MCH 29.2 (26-34) pg MCHC 32.4 (32-36) g/dl RDW 12.7 (11.5-14.5) % Plt Count 181 (150-375) k/mm3 MPV 10.1 (7.4-10.4) fl Immature Gran % (Auto) 0.2 (0-0.5) % Neut % (Auto) 79.6 H (45.5-73.1) % Lymph % (Auto) 8.9 L (18.3-44.2) % [place] % (Auto) 10.4 H (2.6-8.5) % Eos % (Auto) 0.4 (0-4.4) % Baso % (Auto) 0.5 (0.2-1.2) % Lymph # (Auto) 0.84 L (0.9-3.2) K/mm3 [place] # (Auto) 1.0 H (0.1-0.6) K/mm3 Eos # (Auto) 0.0 (0-0.3) K/mm3 Baso # (Auto) 0.1 (0.0-0.1) K/mm3 Abs Immat Gran (auto) 0.02 (0.00-0.031) K/mm3 Absolute Neuts (auto) 7.6 H (1.3-6.7) K/mm3 Absolute Nucleated RBC 0.000 (0.0-0.012) K/mm3 Nucleated RBC % 0.0 (0.0-0.2) % PT 13.3 (11.1-14.7) Seconds INR 1.0 APTT 26.5 (22.3-36.8) Seconds Sodium 139 (137-145) mmol/L Potassium 4.0 (3.4-5.0) mmol/L Chloride 103 (98-107) mmol/L Carbon Dioxide 29 (22-30) mmol/L Anion Gap 7 (4-12) mmol/L BUN 14 D (9-20) mg/dL Creatinine 0.84 (0.7-1.3) mg/dL Estim Creat Clear Calc 69 ml/min Estimated GFR > 60 (59 - ) Glucose 112 H (65-110) mg/dL Calcium 9.3 (8.4-10.2) mg/dL Total Bilirubin 1.1 (0.2-1.3) mg/dL AST 56 (17-59) U/L ALT 15 (6-50) U/L Alkaline Phosphatase 148 H (38-126) U/L Troponin I 0.019 0.027 D (0.000-0.034) ng/mL Total Protein 7.0 (6.3-8.2) g/dL Albumin 4.1 (3.5-5.1) g/dL Urine Color Yellow (Yellow) Urine Appearance Cloudy H (Clear) Urine pH 7.0 (5.0-9.0) Ur Specific [place] 1.009 (1.001-1.035) Urine Protein Negative (Negative) mg/dL Urine Glucose (UA) Negative (Negative) mg/dL Urine Ketones Negative (Negative) mg/dL Ur Blood (Man) Negative (Negative) Urine Nitrate Negative (Negative) Urine Bilirubin Negative (Negative) Urine Urobilinogen 0.2 (<2.0) mg/dL Leukocyte Esterase Rfl Negative (Negative) ÓSCAR/UL Urine RBC 3-5 H (0-2) /hpf Urine WBC 0-5 (0-3) /hpf Ur Squamous Epith Cells None seen (Few) /hpf Urine Bacteria None seen /hpf Urine Casts 0-2 Imaging Data Radiologist's impression: ITS Impressions Chest X-Ray 01/22/25 12:55 Impression: Normal chest. ECG Data EKG #1: ECG completion date: 01/22/25 ECG completion time: 11:54 EKG Interpretation: normal rate (69), sinus rhythm, no ectopy, normal QRS, normal QT and NL axis Discharge Plan Discharge Clinical Impression: Chest pain, Agitation due to dementia Patient Disposition: Still a Patient Condition: Stable
[2025-01-22 15:28] LABS: Troponin I 0.027 ng/mL (0.000-0.034)
[2025-01-22] MEDS: LORazepam INJ (*CRX) 2 MG/ML VIAL 0.5 MG IV PUSH (16:36)
--- NOTE | 2025-01-22 16:55 | PC.NURSE ---
Pt moved to private room d/t increased confusion and anxiety. at bedside provide calming therapies, RN at bedside reorienting patient and providing environment modification and medication adjustment. Unable to obtain blood pressure at this time, pt swinging arms. Pulse ox obtained, WNL. Linen changed from dirty depends. [place] provided for additional comfort.
--- NOTE | 2025-01-22 17:53 | P.HP_ITS ---
H&P: HPI History of Present Illness Date/Time: 01/22/25 17:53 Chief Complaint: Chest and jaw pain Narrative: 74 year old man with past medical history of Parkinson's, CAD, hypertension hyperlipidemia and dementia presents the hospital with chest and jaw pain. HPI is limited as patient has dementia. Per the the patient has general vague complaints however he has never complained of jaw pain or chest pain before so she brought into the emergency room. states that the patient be UTI last week and has been been treated with antibiotics. She states that however his weakness in his confusion has increased and he even had hallucinations yesterday. In the ED the patient has anemia at 13.3 which is baseline, BNP is WdL, baseline troponin is 0.019, 3 hours troponin being 0.027. UA is noninfective. Chest x- ray shows no acute process. Review of Systems Review of Systems: ROS unobtainable: Yes unobtainable due to mental status PMFSH Past Medical History Medical History REM behavioral disorder Delusional disorder History of heart attack CAD (coronary artery disease), [place] coronary artery MDD (major depressive disorder) Hyperlipidemia Benign essential HTN Parkinson disease Surgical History Surgical History Hx of coronary angioplasty stent to LAD 2012 Family History Family History Father Heart disease Mother Hypertension Sibling Heart disease Social History Social History Social History: Smoking status: Never smoker Second hand tobacco smoke exposure: Yes Alcohol intake: never Alcohol use details: Occasional Substance use: never Substance use type: does not use Do You Feel Safe in your Home?: Yes Lack of Transportation: No Lack of Food: Never True Current Housing: I Have Housing Concerned About Future Housing: No Difficulty Paying Gas/Electric Bills: No Difficulty Paying for Meds: No Currently Unemployed: No Education: Trade/Vocational Certificate Difficulty w/ Childcare or Family Care: No Living arrangements: with family Occupation/Education: retired Gender identity (if verbalized by the patient): Male Sexual Orientation (if Verbalized by the Patient): Straight or Heterosexual Spiritual care concerns: No Agree to blood products: Yes Meds Home Medications and Allergies Home Medications ?Medication ?Instructions ?Recorded ?Confirmed ?Type ferrous sulfate 325 mg (65 mg 325 mg PO QPM 03/17/23 01/22/25 History iron) tablet aspirin 81 mg tablet,delayed 81 mg PO 1200 06/06/24 01/22/25 History release sertraline 50 mg tablet See Rx Instructions .Route 09/20/24 01/22/25 Rx .COMPLEX #270 tabs lisinopril 20 mg tablet See Rx Instructions .Route 11/07/24 01/22/25 Rx .COMPLEX #180 tabs carbidopa 25 mg-levodopa 100 mg 1 tablet PO TID #270 tabs 01/06/25 01/22/25 Rx tablet cephalexin 500 mg capsule 500 mg PO Q6H 7 days #28 caps 01/17/25 01/22/25 Rx atorvastatin 40 mg tablet See Rx Instructions .Route .COMPLEX 01/22/25 01/22/25 History furosemide 40 mg tablet 20 mg (1/2 x 40 mg) PO QAM #30 tabs 01/22/25 01/22/25 Rx hydralazine 10 mg tablet 10 mg PO BID 01/22/25 01/22/25 History Allergies Allergy/AdvReac Type Severity Reaction Status Date / Time Penicillins Allergy Intermediate rash Verified 01/22/25 18:39 quetiapine (From Seroquel) AdvReac Severe Agitated Verified 01/22/25 18:39 Vital Signs Vital Signs - 24 hr 01/22/25 11:45 01/22/25 13:06 01/22/25 13:51 Temperature 98 F Pulse Rate 71 78 90 Respiratory Rate 18 18 18 Blood Pressure 205/93 H 141/72 H 177/120 H Pulse Oximetry 100 95 95 Oxygen Delivery Room Air 01/22/25 16:54 Temperature Pulse Rate 90 Respiratory Rate 20 Blood Pressure Pulse Oximetry 94 Oxygen Delivery Exam Narrative: General: Chronically ill HEENT: normocephalic, atraumatic. Mucous membranes moist. EOMI, PERRLA, bilateral sclera anicteric, no conjunctival injection. Neck supple without JVD, lymphadenopathy, or bruit. Respiratory: clear to ascultation bilaterally. No rales/rhonic/wheezes. Cardiovascular: Regular rate and rhythm, normal S1-S2 upon ascultation. No murmurs, rubs, or clicks. PMI is nondisplaced, capillary refill less than 3 second. Abdomen: Soft, round, no pulsatile masses, nondistended and nontender. No rebound, no guarding. No CVA tenderness, no hepatosplenomegaly. Bowel sounds present to all four quadrants. No high pitch or tinkling sounds, resonant to percussion. Extremities: No cyanosis, clubbing, or edema present. Pulses are palpable 2/2. Active ROM to all four extremities. Left lower extremity with ecchymosis Neuro: Alert and orientated x 4. PERRLA. Cranial nerves 2-12 intact without focal deficit. Skin: Warm, dry, and intact, without rash, erythema, or lesion. Psych: Agitated H&P: Results Labs Labs: Short CBC 01/22/25 Range/Units 12:08 WBC 9.5 (4.5-10.0) K/mm3 Hgb 13.2 L (14.0-18.0) g/dL Hct 40.8 L (42.0-52.0) % Plt Count 181 (150-375) k/mm3 BMP 01/22/25 12:08 Sodium 139 Potassium 4.0 Chloride 103 Carbon Dioxide 29 BUN 14 D Creatinine 0.84 Glucose 112 H Calcium 9.3 Cardiac Enzymes 01/22/25 01/22/25 Range/Units 12:08 14:55 Troponin I 0.019 0.027 D (0.000-0.034) ng/mL Liver Function 01/22/25 Range/Units 12:08 Total Bilirubin 1.1 (0.2-1.3) mg/dL AST 56 (17-59) U/L ALT 15 (6-50) U/L Alkaline Phosphatase 148 H (38-126) U/L Albumin 4.1 (3.5-5.1) g/dL Urine 01/22/25 Range/Units 12:08 Urine Color Yellow (Yellow) Urine Appearance Cloudy H (Clear) Urine pH 7.0 (5.0-9.0) Ur Specific [place] 1.009 (1.001-1.035) Urine Protein Negative (Negative) mg/dL Urine Glucose (UA) Negative (Negative) mg/dL Assessment and Plan Assessment and plan (1) Hallucinations: Code(s): R44.3 - Hallucinations, unspecified Status: Acute Assessment and Plan: increased confusion and weakness after uti, getting worse states the a was sundowning yesterday Chest x-ray with no acute findings UA noninfective No signs of soft tissue infection Unable do CTA at this time due to patient moving too much without sedation (2) Chest pain: Code(s): R07.9 - Chest pain, unspecified Status: Acute Assessment and Plan: Trend troponins EKGs as needed (3) Benign essential HTN: Code(s): I10 - Essential (primary) hypertension Status: Acute Assessment and Plan: Continue hydralazine (4) CAD (coronary artery disease), [place] coronary artery: Code(s): I25.10 - Atherosclerotic heart disease of [place] coronary artery without angina pectoris Status: Acute Assessment and Plan: Continue aspirin, Lipitor (5) Hyperlipidemia: Code(s): E78.5 - Hyperlipidemia, unspecified Status: Acute Assessment and Plan: Continue Lipitor (6) Chronic anemia: Code(s): D64.9 - Anemia, unspecified Status: Acute Assessment and Plan: At baseline no signs of bleeding (7) Parkinson disease: Code(s): G20 - Parkinson's disease Status: Acute Assessment and Plan: Continue Sinemet (8) Lewy body dementia: Code(s): G31.83 - Neurocognitive disorder with Lewy bodies; F02.80 - Dementia in other diseases classified elsewhere, unspecified severity, without behavioral disturbance, psychotic disturbance, mood disturbance, and anxiety Status: Acute Assessment and Plan: Patient on medications as it has paradoxical side effects for him (9) UTI (urinary tract infection): Code(s): N39.0 - Urinary tract infection, site not specified Status: Acute Assessment and Plan: Continue Keflex for UTI end date Monday Quality VTE Prophylaxis VTE prophylaxis: mechanical ordered Hospitalist [facility] Advance Care Plan I have confirmed that the patient's Advanced Care Plan is present, code status is documented, or surrogate decision maker is listed in patient medical record.: Yes Medication Reconciliation I have utilized all available resources to obtain, update and review the patients current medications (includes all prescriptions, OTC, herbals, cannabis, and nutritional supplements).: Yes
--- NOTE | 2025-01-22 18:22 | PC.NURSE ---
Attempted to get updated VS on patient and pt got very upset and aggressive, trying to hit staff. No new vitals obtained. Pt in NAD. Pt deescalated after being left alone.
--- NOTE | 2025-01-22 18:34 | ADMGEN ---
This patient, Syed Aquino, was admitted to IMU Room 207-01. Patient/family oriented to hospital policies and general routines including ID bracelet, bed and alarms, visiting hours, pain management, procedures, bathroom and other care routines, personal items, smoking policy, room service/diet, and visiting hours. Information on how to activate the Rapid Response Team has been discussed. Patient/Family are encouraged to report perceived risks to care and to ask questions if they do not understand what they are told or what they should do.
[2025-01-22] MEDS: SODIUM CHLORIDE 0.9% IV 1,000 ML 125 ML IV CONT (19:22)
[2025-01-23] VITALS (16 sets, daily range): BP systolic 126–164; BP diastolic 60–112; PULSE 69–98; RESP 16–20; TEMP 36.4–37.2; O2SAT 93–98; BMI 10.0
[2025-01-23] MEDS: SODIUM CHLORIDE 0.9% IV 1,000 ML 125 ML IV CONT ×3 (03:34→20:12)
[2025-01-23] MEDS: CEPHALEXIN 500 MG CAPSULE PO (11:13)
[2025-01-23] MEDS: CARBIDOPA/LEVODOPA 25/100 MG TABLET 1 TABLET PO ×2 (11:13→17:54)
[2025-01-23] MEDS: SERTRALINE HCL 50 MG TABLET 100 MG BY MOUTH (11:15)
[2025-01-23] MEDS: ASPIRIN 81 MG ENTERIC TABLET PO (11:15)
[2025-01-23] MEDS: hydrALAZINE 10 MG TABLET PO ×2 (11:15→17:54)
[2025-01-23] MEDS: cefTRIAXone 2 GM/NS 100 ML 2 GM/100 ML BAG IVPB (15:53)
--- NOTE | 2025-01-23 17:45 | PM.IMPN ---
Progress Note: A&P Assessment and Plan (1) Hallucinations: Code(s): R44.3 - Hallucinations, unspecified Status: Acute Assessment and Plan: increased confusion and weakness after uti, getting worse states the a was yesterday Chest x-ray with no acute findings UA noninfective No signs of soft tissue infection Unable do CTA at this time due to patient moving too much without sedation (2) Chest pain: Code(s): R07.9 - Chest pain, unspecified Status: Acute Assessment and Plan: Trend troponins EKGs as needed (3) Benign essential HTN: Code(s): I10 - Essential (primary) hypertension Status: Acute Assessment and Plan: Continue hydralazine (4) CAD (coronary artery disease), [place] coronary artery: Code(s): I25.10 - Atherosclerotic heart disease of [place] coronary artery without angina pectoris Status: Acute Assessment and Plan: Continue aspirin, Lipitor (5) Hyperlipidemia: Code(s): E78.5 - Hyperlipidemia, unspecified Status: Acute Assessment and Plan: Continue Lipitor (6) Chronic anemia: Code(s): D64.9 - Anemia, unspecified Status: Acute Assessment and Plan: At baseline no signs of bleeding (7) Parkinson disease: Code(s): G20 - Parkinson's disease Status: Acute Assessment and Plan: Continue Sinemet (8) Lewy body dementia: Code(s): G31.83 - Neurocognitive disorder with Lewy bodies; F02.80 - Dementia in other diseases classified elsewhere, unspecified severity, without behavioral disturbance, psychotic disturbance, mood disturbance, and anxiety Status: Acute Assessment and Plan: Patient on medications as it has paradoxical side effects for him (9) UTI (urinary tract infection): Code(s): N39.0 - Urinary tract infection, site not specified Status: Acute Assessment and Plan: Continue Keflex for UTI end date Monday Plan patient with severe dementia presented with c/o CP and jaw pain, unable to provider detail ROS, his two sent of cardiac enzymes are negative and there are no changes on EKG, patient is unable to participate in PT, I spoke with patient , patient has deteriorated significantly and she is unable to take care of him, will monitor patient couple days, patient is considering hospice. will continue monitor Subjective Date/time seen: 01/23/25 17:45 Interval history: Chest and jaw pain H&P-Narrative: 74 year old man with past medical history of Parkinson's, CAD, hypertension hyperlipidemia and dementia presents the hospital with chest and jaw pain. HPI is limited as patient has dementia. Per the the patient has general vague complaints however he has never complained of jaw pain or chest pain before so she brought into the emergency room. states that the patient be UTI last week and has been been treated with antibiotics. She states that however his weakness in his confusion has increased and he even had hallucinations yesterday. In the ED the patient has anemia at 13.3 which is baseline, BNP is WdL, baseline troponin is 0.019, 3 hours troponin being 0.027. UA is noninfective. Chest x-ray shows no acute process. patient with severe dementia presented with c/o CP and jaw pain, unable to provider detail ROS, his two sent of cardiac enzymes are negative and there are no changes on EKG, patient is unable to participate in PT, I spoke with patient , patient has deteriorated significantly and she is unable to take care of him, will monitor patient couple days, patient is considering hospice. will continue monitor Review of Systems Review of Systems: ROS unobtainable: Yes unobtainable due to mental status Exam Narrative: Patient is comfortable, NAD HEENT: eyes are clear and none icteric LUNGS:CTA HEART: RR S1S2 ABD: BS+, Soft and nontender Lower extremities: no edema SKIN: nonjaundiced Neuro: grossly intact dementia Parkinson Objective Data Vital Signs Vital Signs: Vital Signs - 24 hr 01/22/25 18:27 01/22/25 18:52 01/22/25 19:59 Temperature 37.3 C Pulse Rate 81 81 98 Respiratory Rate 18 18 18 Blood Pressure Pulse Oximetry 96 96 96 Oxygen Delivery Room Air Room Air 01/22/25 20:00 01/22/25 20:00 01/22/25 23:00 Temperature 36.9 C Pulse Rate 98 100 83 Respiratory Rate 18 Blood Pressure 180/60 H Pulse Oximetry 98 Oxygen Delivery 01/23/25 00:00 01/23/25 00:00 01/23/25 01:00 Temperature Pulse Rate 88 88 80 Respiratory Rate 18 20 Blood Pressure Pulse Oximetry 98 Oxygen Delivery Room Air 01/23/25 03:49 01/23/25 03:51 01/23/25 06:00 Temperature Pulse Rate 78 78 73 Respiratory Rate 20 Blood Pressure Pulse Oximetry 98 Oxygen Delivery Room Air 01/23/25 07:26 01/23/25 08:00 01/23/25 08:00 Temperature 37.1 C Pulse Rate 92 92 81 Respiratory Rate 20 20 Blood Pressure 148/60 H Pulse Oximetry 98 98 Oxygen Delivery Room Air 01/23/25 09:15 01/23/25 10:00 01/23/25 11:31 Temperature 36.4 C Pulse Rate 69 69 Respiratory Rate 20 Blood Pressure 164/75 H Pulse Oximetry 98 96 Oxygen Delivery Room Air 01/23/25 13:31 01/23/25 16:00 Temperature 37.2 C Pulse Rate 77 Respiratory Rate 18 Blood Pressure 126/69 Pulse Oximetry 98 Oxygen Delivery Room Air Intake/Output Intake/Output: Intake & Output 01/20/25 01/21/25 01/22/25 01/23/25 23:59 23:59 23:59 23:59 Intake Total 2300.4 Balance 2300.4 Meds/Results Medications: Active Medications Generic Name Dose Route Start Last Admin Trade Name Freq PRN Reason Stop Dose Admin Acetaminophen 650 mg 01/22/25 16:57 Acetaminophen 325 Mg Tablet PO Q4H PRN Mild Pain (1-3) or Fever Hydrocodone Bitart/Acetaminophen 1 tab 01/22/25 16:57 Hydrocodone/Acetaminophen (*Crx) 5-325 Mg Tablet PO Q4H PRN Pain Rated 4-6 Aspirin 81 mg 01/23/25 12:00 01/23/25 11:15 Aspirin 81 Mg Enteric Tablet PO 81 mg 1200 STACIE Administration Atorvastatin Calcium 40 mg 01/22/25 21:00 01/22/25 21:36 Atorvastatin 40 Mg Tablet BY MOUTH Not Given HS STACIE Carbidopa/Levodopa 1 tablet 01/23/25 09:00 01/23/25 15:28 Carbidopa/Levodopa 25/100 Mg Tablet PO Not Given TID STACIE Furosemide 20 mg 01/23/25 09:00 01/23/25 11:15 Furosemide 20 Mg Tablet PO Not Given QAM STACIE Hydralazine HCl 10 mg 01/23/25 09:00 01/23/25 11:15 Hydralazine 10 Mg Tablet PO 10 mg BID STACIE Administration Sodium Chloride 1,000 mls @ 125 mls/hr 01/22/25 17:00 01/23/25 11:15 Normal Saline Iv IV CONT 125 mls/hr .Q8H STACIE Administration Ceftriaxone Sodium 2 gm in 100 mls @ 200 mls/hr 01/23/25 16:00 01/23/25 16:42 Rocephin 2 Gm/Ns 100 Ml IVPB 01/24/25 16:29 Infused Q24H STACIE Infusion Ondansetron HCl 4 mg 01/22/25 16:57 Ondansetron Inj 4 Mg/2 Ml Vial IV PUSH Q4H PRN Nausea Sertraline HCl 50 mg 01/22/25 21:00 01/22/25 21:36 Sertraline Hcl 50 Mg Tablet BY MOUTH Not Given HS STACIE Sertraline HCl 100 mg 01/23/25 09:00 01/23/25 11:15 Sertraline Hcl 50 Mg Tablet BY MOUTH 100 mg QAM STACIE Administration Radiology Results: ITS Impressions Chest X-Ray 01/22/25 12:55 Impression: Normal chest. Quality VTE Prophylaxis VTE prophylaxis: mechanical ordered
[2025-01-23] MEDS: SERTRALINE HCL 50 MG TABLET BY MOUTH (20:13)
[2025-01-23] MEDS: ATORVASTATIN 40 MG TABLET BY MOUTH (20:13)
[2025-01-24] VITALS (15 sets, daily range): BP systolic 144–166; BP diastolic 72–94; PULSE 62–96; RESP 12–22; TEMP 36.5–36.9; O2SAT 97–100
--- NOTE | 2025-01-24 01:21 | PM.EVENT ---
Event Note Event Note Event Note: I was in the room seeing another patient on the same floor. The patient could be heard screaming down the jones. He was telling nursing staff ?to find a gun and shoot that emanuel.? A was fighting with staff. The patient was pulling at lines and at high risk of injuring himself and others. When I arrived at the bedside the patient was yelling so loudly that we could not even talk over his volume of voice. He had mittens in place which he then subsequently removed. He is uncooperative in violent with staff. Nursing staff told me that other providers at stated that they did not want to give patient any antipsychotics due to his history of Parkinson's. Patient does have known Lewy body dementia and is obviously hallucinating at this time. Due to risk of injury the benefits of antipsychotics outweigh the risks. Will give a dose of Valium Zyprexa. Nursing staff also tells me that the family is considering hospice as well. Will re-evaluate patient after medications and provide further care at that time. On re-evaluation the patient was calm and sleeping. 30 minute spent in critical care activities. This case had a high probability of a clinically significant, sudden, or life threatening deterioration of this patient's condition which required my full and direct attention, intervention and personal management.
[2025-01-24] MEDS: OLANZapine 10 MG INJ VIAL 5 MG IM (01:32)
[2025-01-24] MEDS: SODIUM CHLORIDE 0.9% IV 1,000 ML 125 ML IV CONT ×2 (04:40→12:10)
[2025-01-24 04:49] LABS: Hematocrit 40.7 % (42.0-52.0); Hemoglobin 13.3 g/dL (14.0-18.0); Mean Corpuscular HGB Conc 32.7 g/dl (32-36); Mean Corpuscular Hemoglobin 29.6 pg (26-34); Mean Corpuscular Volume 90.6 fl (80-100); Mean Platelet Volume 10.6 fl (7.4-10.4); Platelet Count Result 173 k/mm3 (150-375); Red Blood Count 4.49 M/mm3 (4.6-6.20); Red Cell Distribution Width 12.6 % (11.5-14.5)
[2025-01-24 04:59] LABS: Anion Gap 5 mmol/L (4-12); Blood Urea Nitrogen 12 mg/dL (9-20); Calcium 9.1 mg/dL (8.4-10.2); Carbon Dioxide 29 mmol/L (22-30); Chloride 107 mmol/L (98-107); Estimated CRCL calculation 67 ml/min; Estimated Glomerular Filt Rate > 60; Glucose 103 mg/dL (65-110); Magnesium 2.2 mg/dL (1.6-2.3); Potassium 3.8 mmol/L (3.4-5.0); Sodium 141 mmol/L (137-145)
--- NOTE | 2025-01-24 10:47 | PCOTNOTE ---
Pt currently in restraints due to increased agitation. RN asking to hold at this time to not agitate pt any further. Will continue to follow for OT evaluation.
[2025-01-24] MEDS: CARBIDOPA/LEVODOPA 25/100 MG TABLET 1 TABLET PO (12:04)
[2025-01-24] MEDS: hydrALAZINE 10 MG TABLET PO (12:04)
[2025-01-24] MEDS: SERTRALINE HCL 50 MG TABLET 100 MG BY MOUTH (12:04)
[2025-01-24] MEDS: ASPIRIN 81 MG ENTERIC TABLET PO (12:06)
--- NOTE | 2025-01-24 12:27 | PM.DS ---
DS: Admitting Diagnosis Discharge Date 01/24/25 Admitting Diagnosis Chest and jaw pain DS: Discharge Diagnosis Discharge Diagnosis (1) Hallucinations: Code(s): R44.3 - Hallucinations, unspecified Status: Acute Assessment and Plan: increased confusion and weakness after uti, getting worse states the a was yesterday Chest x-ray with no acute findings UA noninfective No signs of soft tissue infection Unable do CTA at this time due to patient moving too much without sedation (2) Chest pain: Code(s): R07.9 - Chest pain, unspecified Status: Acute Assessment and Plan: Trend troponins EKGs as needed (3) Benign essential HTN: Code(s): I10 - Essential (primary) hypertension Status: Acute Assessment and Plan: Continue hydralazine (4) CAD (coronary artery disease), [place] coronary artery: Code(s): I25.10 - Atherosclerotic heart disease of [place] coronary artery without angina pectoris Status: Acute Assessment and Plan: Continue aspirin, Lipitor (5) Hyperlipidemia: Code(s): E78.5 - Hyperlipidemia, unspecified Status: Acute Assessment and Plan: Continue Lipitor (6) Chronic anemia: Code(s): D64.9 - Anemia, unspecified Status: Acute Assessment and Plan: At baseline no signs of bleeding (7) Parkinson disease: Code(s): G20 - Parkinson's disease Status: Acute Assessment and Plan: Continue Sinemet (8) Lewy body dementia: Code(s): G31.83 - Neurocognitive disorder with Lewy bodies; F02.80 - Dementia in other diseases classified elsewhere, unspecified severity, without behavioral disturbance, psychotic disturbance, mood disturbance, and anxiety Status: Acute Assessment and Plan: Patient on medications as it has paradoxical side effects for him (9) UTI (urinary tract infection): Code(s): N39.0 - Urinary tract infection, site not specified Status: Acute Assessment and Plan: Continue Keflex for UTI end date Monday Plan patient with severe dementia presented with c/o CP and jaw pain, unable to provider detail ROS, his two sent of cardiac enzymes are negative and there are no changes on EKG, patient is unable to participate in PT, I spoke with patient , patient has deteriorated significantly and she is unable to take care of him, will monitor patient couple days, patient is considering hospice. will continue monitor DS: Summary Hospital Course Hospital Course: patient with severe dementia presented with c/o CP and jaw pain, unable to provider detail ROS, his two sent of cardiac enzymes are negative and there are no changes on EKG, patient is unable to participate in PT, I spoke with patient , patient has deteriorated significantly and she is unable to take care of him, will monitor patient couple days, patient is considering hospice. Patient has decided to place patient under hospice care, will discharge the patient today. Time Spent with Patient Time attestation: Total time spent providing and/or coordinating discharge services: Exam Narrative: Patient is comfortable, NAD HEENT: eyes are clear and none icteric LUNGS:CTA HEART: RR S1S2 ABD: BS+, Soft and nontender Lower extremities: no edema SKIN: nonjaundiced Neuro: grossly intact dementia Parkinson DS: Data Data Completed and Pending Labs on day of discharge: Labs from last 24 hours 01/24/25 04:21 WBC 10.0 RBC 4.49 L Hgb 13.3 L Hct 40.7 L MCV 90.6 MCH 29.6 MCHC 32.7 RDW 12.6 Plt Count 173 MPV 10.6 H Sodium 141 Potassium 3.8 Chloride 107 Carbon Dioxide 29 Anion Gap 5 BUN 12 Creatinine 0.83 Estim Creat Clear Calc 67 Estimated GFR > 60 Glucose 103 Calcium 9.1 Magnesium 2.2 Discharge Plan Discharge Attending physician on discharge: Chandan Garcia Discharging Clinician: Matt Oliva Patient Disposition: Hospice - Home Activity: as tolerated Diet: as tolerated Discharge Instructions: Patient is being discharged and will be admitted under hospice care Patient Language: Swedish Stand Alone Forms: General Discharge Information Discharge Medications: Continued aspirin 81 mg tablet,delayed release (DR/EC) 81 mg PO 1200 carbidopa-levodopa 25-100 mg tablet 1 tablet PO TID Qty: 270 4RF Rx Instructions: TAKE 1 tablet TID ferrous sulfate 325 mg (65 mg iron) Tablet 325 mg PO QPM cephalexin 500 mg capsule 500 mg PO Q6H 7 Days Qty: 28 0RF atorvastatin 40 mg tablet See Rx Instructions .ROUTE .COMPLEX Rx Instructions: TAKE 1 TABLET BY MOUTH AT BEDTIME hydralazine 10 mg tablet 10 mg PO BID sertraline 50 mg tablet See Rx Instructions .ROUTE .COMPLEX Qty: 270 1RF Dose Instruction: TAKE 2 TABLETS BY MOUTH IN THE MORNING THEN TAKE 1 TABLET BY MOUTH IN THE EVENING Rx Instructions: TAKE 2 TABLETS BY MOUTH IN THE MORNING THEN TAKE 1 TABLET BY MOUTH IN THE EVENING lisinopril 20 mg tablet See Rx Instructions .ROUTE .COMPLEX Qty: 180 0RF Dose Instruction: TAKE 1 TABLET BY MOUTH TWICE DAILY Rx Instructions: TAKE 1 TABLET BY MOUTH TWICE DAILY furosemide 40 mg tablet 20 mg PO QAM Qty: 30 1RF Patient Comments: Pt has been taking medication as needed, has a history of making pt dizzy Date of admission: 01/23/25 14:41 Primary Care Provider: Anuradha Lomas Admitting Provider: Chandan Garcia Attending physician on admission: Chandan Garcia Condition: Stable
[2025-01-24] MEDS: LORazepam INJ (*CRX) 2 MG/ML VIAL 0.5 MG IV PUSH (13:03)
== END 2025-01-24 12:27 | disposition hospice, home (50) | DRG 57 ==
LOC: ANHED 12:05 → ANHIMU 17:38
PROVIDERS: Student in an Organized Health Care Education/Training Program; Admitting Provider General Practice; Emergency Provider Emergency Medicine; PCP Family Medicine; Visit Provider Family Medicine
DX: G31.83 Neurocognitive disorder with Lewy bodies (principal); R44.3 Hallucinations, unspecified; N39.0 Urinary tract infection, site not specified; I25.10 Atherosclerotic heart disease of native coronary artery without angina pectoris; I10 Essential (primary) hypertension; E78.5 Hyperlipidemia, unspecified; R45.1 Restlessness and agitation; G20.A1 Parkinson's disease without dyskinesia, without mention of fluctuations; F02.80 Dementia in other diseases classified elsewhere, unspecified severity, without behavioral disturbance, psychotic disturbance, mood disturbance, and anxiety; F32.9 Major depressive disorder, single episode, unspecified; F91.8 Other conduct disorders; I25.2 Old myocardial infarction; Z79.82 Long term (current) use of aspirin
CPT/HCPCS: 36415; 71046; 80048; 80053; 81001; 83735; 84484; 85025; 85027; 85610; 85730; 93005; 96361; 96374; 96375; 97162; 99285; A9270; G0378; J0696; J2060; J2359; J7030

== ENCOUNTER 2025-01-24 12:28 | HOS | payer OTHER, MEDICARE, SELFPAY ==
[2025-01-24 14:25] VITALS: BMI 28.3
--- NOTE | 2025-01-24 14:31 | PC.NURSE ---
Pt admitted to hospice. Pts at bedside and voiced no complaints or concerns at this time. Pt is resting in bed at this time with soft wrist restraints continued. Pt continues to yell out and thrash in bed, unable to redirect at this time. IV sites remained covered with guaze. Siderails up x4. Bed alarm on. Will continue to monitor. Maulik Torres RN
--- NOTE | 2025-01-24 16:20 | P.HP_ITS ---
H&P: HPI History of Present Illness Date/Time: 01/24/25 16:20 Chief Complaint: Uncontrolled agitation Narrative: This unfortunate 74-year-old gentleman with history of Lewy body dementia was in his usual state of health when he was diagnosed with a urinary tract infection during emergency department January 17. [place] prior to the urinary tract infection he was having both daytime and nighttime hallucinations. 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 Since onset of his UTI he has been more confused agitated and falling. He has continued to eat some though not as well. He had no fevers or chills. He was complaining of some chest discomfort with nausea and jaw discomfort when he presented to the emergency room January 22. However troponins were flat an EKG was unremarkable. This x-ray was unremarkable. No sign of urinary tract infection on urine and since. White count was not elevated hemoglobin was stable and chemistries were unremarkable. While awaiting test results in the emergency department he became much more agitated and confused than usual. He was trying to climb out of bed. He had been oriented to person and at least know he was in hospital when he arrived to the emergency department put said the confusion he was oriented to person only. Because of his uncontrolled agitation and advanced dementia he was admitted inpatient hospice service for symptom management. At baseline he walks with a cane or walker in the house. Done it most of the time. Over the last month he has had more difficulty walking. During the 2 days prior to hospital admission he was unable to walk at all. During the 2 weeks or so prior to hospital admission he was incontinent of both urine and stool. Review of Systems Review of Systems: ROS unobtainable: Yes unobtainable due to medical condition PMFSH Past Medical History Medical History REM behavioral disorder Delusional disorder History of heart attack CAD (coronary artery disease), [place] coronary artery MDD (major depressive disorder) Hyperlipidemia Benign essential HTN Parkinson disease Surgical History Surgical History Hx of coronary angioplasty stent to LAD 2012 Family History Family History Father Heart disease Mother Hypertension Sibling Heart disease Social History Social History Social History: Smoking status: Never smoker Second hand tobacco smoke exposure: Yes Alcohol intake: never Alcohol use details: Occasional Substance use: never Substance use type: does not use Do You Feel Safe in your Home?: Yes Lack of Transportation: No Lack of Food: Never True Current Housing: I Have Housing Concerned About Future Housing: No Difficulty Paying Gas/Electric Bills: No Difficulty Paying for Meds: No Currently Unemployed: No Education: Trade/Vocational Certificate Difficulty w/ Childcare or Family Care: No Living arrangements: with family Occupation/Education: retired Gender identity (if verbalized by the patient): Male Sexual Orientation (if Verbalized by the Patient): Straight or Heterosexual Spiritual care concerns: No Agree to blood products: Yes Meds Home Medications and Allergies Home Medications Medication Instructions Recorded Confirmed Type ferrous sulfate 325 mg (65 mg 325 mg PO QPM 03/17/23 01/22/25 History iron) tablet aspirin 81 mg tablet,delayed 81 mg PO 1200 06/06/24 01/22/25 History release sertraline 50 mg tablet See Rx Instructions .Route 09/20/24 01/22/25 Rx .COMPLEX #270 tabs lisinopril 20 mg tablet See Rx Instructions .Route 11/07/24 01/22/25 Rx .COMPLEX #180 tabs carbidopa 25 mg-levodopa 100 mg 1 tablet PO TID #270 tabs 01/06/25 01/22/25 Rx tablet cephalexin 500 mg capsule 500 mg PO Q6H 7 days #28 caps 01/17/25 01/22/25 Rx atorvastatin 40 mg tablet See Rx Instructions .Route .COMPLEX 01/22/25 01/22/25 History furosemide 40 mg tablet 20 mg (1/2 x 40 mg) PO QAM #30 tabs 01/22/25 01/22/25 Rx hydralazine 10 mg tablet 10 mg PO BID 01/22/25 01/22/25 History Allergies Allergy/AdvReac Type Severity Reaction Status Date / Time Penicillins Allergy Intermediate rash Verified 01/23/25 15:40 quetiapine (From Seroquel) AdvReac Severe Agitated Verified 01/22/25 18:39 Exam Narrative: HEENT: PERRL, sclerae nonicteric, pharyngeal mucosa pink and intact NECK: No JVD CHEST: Clear to auscultation. Normal effort HEART: NL S1/S2, regular, no murmur ABDOMEN: BS+, soft, nontender, no mass, no bruits EXTREMITIES: No cyanosis, edema, or clubbing NEUROLOGIC: CN intact and symmetric to inspection MUSCULOSKELETAL: No deformity to visual inspection PSYCH: Drowsy but arouses easily. Oriented to person only Assessment and Plan Assessment and plan (1) Hospice care: Code(s): Z51.5 - Encounter for palliative care Status: Acute Assessment and Plan: * Meet inpatient hospice criteria due to require his IV morphine and scheduled IV Ativan for control of discomfort and agitated * P.r.n. palliative regimen ordered * 01/25/2020 Discussed care and prognosis with spouse at bedside (2) Lewy body dementia: Code(s): G31.83 - Neurocognitive disorder with Lewy bodies; F02.80 - Dementia in other diseases classified elsewhere, unspecified severity, without behavioral disturbance, psychotic disturbance, mood disturbance, and anxiety Status: Acute (3) Agitation due to dementia: Code(s): F03.911 - Unspecified dementia, unspecified severity, with agitation Status: Acute (4) Chronic anemia: Code(s): D64.9 - Anemia, unspecified Status: Acute
[2025-01-24] MEDS: LORazepam INJ (*CRX) 2 MG/ML VIAL 1 MG IV PUSH ×3 (16:31→19:58)
--- NOTE | 2025-01-24 17:09 | PC.NURSE ---
This patient, Syed Aquino, was transferred to [facility] on 01/24/25 at 1700. Personal belongings sent with patient. Report given to Maria Alejandra. Appropriate documentation sent with patient. Phoned patients and informed of new room. she was thankful and eusebio/alyssa Teran RN
[2025-01-24] MEDS: MORPHINE SULFATE (*CRX) 2 MG/ML INJ 1 MG IV PUSH (17:15)
[2025-01-24] MEDS: MORPHINE SULFATE INJ (*CRX) 50 MG in SODIUM CHLORIDE 0.9% IV 95 ML IV CONT (17:17)
--- NOTE | 2025-01-24 23:37 | PC.NURSE ---
TEST TRIAL TO REMOVE THE RESTRAINTS AT THIS TIME. CHARGE NURSE AND SHOE SPRAYER MADE AWARE AND WILL CONTINUE TO EVALUATE.
[2025-01-25] MEDS: LORazepam INJ (*CRX) 2 MG/ML VIAL 1 MG IV PUSH ×3 (02:19→15:18)
[2025-01-25 08:00] VITALS: TEMP 38.2
[2025-01-25 14:54] VITALS: BP 157/99; PULSE 76; RESP 20; TEMP 37.4; O2SAT 94
[2025-01-25 15:27] VITALS: PULSE 76; PULSE 80; RESP 20
[2025-01-25] MEDS: MORPHINE SULFATE INJ (*CRX) 50 MG in SODIUM CHLORIDE 0.9% IV 95 ML IV CONT (15:27)
--- NOTE | 2025-01-25 18:46 | P.PNIM_ITS ---
Progress Note: A&P Assessment and Plan (1) Hospice care: Code(s): Z51.5 - Encounter for palliative care Status: Acute Assessment and Plan: * Meet inpatient hospice criteria due to require his IV morphine and scheduled IV Ativan for control of discomfort and agitated * P.r.n. palliative regimen ordered * 01/24/2025 Discussed care and prognosis with spouse at bedside * 01/25/2025 Less responsive with low grade fever. No agitation. D/c'd scheduled lorazepam, continued PRN. Continue low-dose morphine at 0.5 mg/hr. Discussed with spouse at bedside. Condition rapidly declining. (2) Lewy body dementia: Code(s): G31.83 - Neurocognitive disorder with Lewy bodies; F02.80 - Dementia in other diseases classified elsewhere, unspecified severity, without behavioral disturbance, psychotic disturbance, mood disturbance, and anxiety Status: Acute (3) Agitation due to dementia: Code(s): F03.911 - Unspecified dementia, unspecified severity, with agitation Status: Acute (4) Chronic anemia: Code(s): D64.9 - Anemia, unspecified Status: Acute Subjective Date/time seen: 01/25/25 18:46 Interval history: Still responds to spouse's voice and squeezes her hand. Slept all day. No po intake. Review of Systems Review of Systems: ROS unobtainable: Yes unobtainable due to medical condition Exam Narrative: HEENT: PERRL, sclerae nonicteric, pharyngeal mucosa pink and intact NECK: No JVD CHEST: Clear to auscultation. Normal effort HEART: NL S1/S2, regular, no murmur ABDOMEN: BS+, soft, nontender, no mass, no bruits EXTREMITIES: No cyanosis, edema, or clubbing NEUROLOGIC: CN intact and symmetric to inspection, intermittent myoclonic jerks of extremities MUSCULOSKELETAL: No deformity to visual inspection PSYCH: Drowsy with minimal response to verbal or tactile stimuli Objective Data Vital Signs Vital Signs: Vital Signs - 24 hr 01/25/25 08:00 01/25/25 14:54 01/25/25 15:27 Temperature 100.8 F H 99.4 F Pulse Rate 76 76 Respiratory Rate 20 20 Blood Pressure 157/99 H Pulse Oximetry 94 01/25/25 15:27 Temperature Pulse Rate 80 Respiratory Rate 20 Blood Pressure Pulse Oximetry Intake/Output Intake/Output: Intake & Output 01/22/25 01/23/25 01/24/25 01/25/25 23:59 23:59 23:59 23:59 Intake Total 22.2 Balance 22.2 Meds/Results Medications: Active Medications Generic Name Dose Route Start Last Admin Trade Name Freq PRN Reason Stop Dose Admin Artificial Tears 1 drop 01/24/25 14:55 Artificial Tears Ophth Soln 15 Ml Bottle EACH EYE Q12H PRN Dry Eye(s) Bisacodyl 10 mg 01/24/25 14:55 Bisacodyl 10 Mg Suppository RECTAL DAILY PRN Constipation Glycopyrrolate 0.1 mg 01/24/25 14:55 Glycopyrrolate Inj (*Sp) 0.2 Mg/Ml Vial IV PUSH Q4H PRN secretions Morphine Sulfate 50 mg/ Sodium 100 mls @ 1 mls/hr 01/24/25 15:00 01/25/25 15:27 Chloride IV CONT 0.5 mg/hr .Q24H STACIE 1 mls/hr Administration 0.5 MG/HR Lorazepam 1 mg 01/24/25 14:55 01/24/25 18:11 Lorazepam Inj (*Crx) 2 Mg/Ml Vial IV PUSH 1 mg Q2H PRN Administration ANXIETY/RESTLESSNESS Lorazepam 1 mg 01/24/25 15:00 01/25/25 15:18 Lorazepam Inj (*Crx) 2 Mg/Ml Vial IV PUSH 1 mg Q6H STACIE Administration Morphine Sulfate 1 mg 01/24/25 15:00 01/24/25 17:15 Morphine Sulfate (*Crx) 2 Mg/Ml Inj IV PUSH 1 mg Q2H PRN Administration Pain/DYSPNEA Promethazine HCl 12.5 mg 01/24/25 14:56 Promethazine Hcl 25 Mg/Ml Ampul IV PUSH Q4H PRN Nausea And Vomiting
[2025-01-25 20:00] VITALS: BP 158/110; PULSE 94; RESP 16; TEMP 36.7; O2SAT 97
[2025-01-26] MEDS: LORazepam INJ (*CRX) 2 MG/ML VIAL 1 MG IV PUSH ×4 (00:56→20:32)
[2025-01-26] MEDS: GLYCOPYRROLATE INJ (*SP) 0.2 MG/ML VIAL 0.1 MG IV PUSH ×2 (07:43→17:21)
[2025-01-26 08:55] VITALS: BP 167/86; PULSE 78; RESP 16; TEMP 39.2
[2025-01-26] MEDS: ACETAMINOPHEN 650 MG SUPPOSITORY RECTAL (09:06)
[2025-01-26] MEDS: MORPHINE SULFATE (*CRX) 2 MG/ML INJ 1 MG IV PUSH (09:06)
[2025-01-26 10:05] VITALS: TEMP 36.8
[2025-01-26] MEDS: MORPHINE SULFATE INJ (*CRX) 50 MG in SODIUM CHLORIDE 0.9% IV 95 ML IV CONT (14:12)
[2025-01-26 20:56] VITALS: BP 137/78; PULSE 76; RESP 20; TEMP 37.7; O2SAT 94
--- NOTE | 2025-01-26 21:04 | P.PNIM_ITS ---
Progress Note: A&P Assessment and Plan (1) Hospice care: Code(s): Z51.5 - Encounter for palliative care Status: Acute Assessment and Plan: * Meet inpatient hospice criteria due to require his IV morphine and scheduled IV Ativan for control of discomfort and agitated * P.r.n. palliative regimen ordered * 01/24/2025 Discussed care and prognosis with spouse at bedside * 01/25/2025 Less responsive with low grade fever. No agitation. D/c'd scheduled lorazepam, continued PRN. Continue low-dose morphine at 0.5 mg/hr. Discussed with spouse at bedside. Condition rapidly declining. * 01/26/2025 Fever to 102.6, coarse crackles throughout both lungs, unresponsive, declining rapidly and required upward titration of medication. (2) Lewy body dementia: Code(s): G31.83 - Neurocognitive disorder with Lewy bodies; F02.80 - Dementia in other diseases classified elsewhere, unspecified severity, without behavioral disturbance, psychotic disturbance, mood disturbance, and anxiety Status: Acute (3) Agitation due to dementia: Code(s): F03.911 - Unspecified dementia, unspecified severity, with agitation Status: Acute (4) Chronic anemia: Code(s): D64.9 - Anemia, unspecified Status: Acute Subjective Date/time seen: 01/26/25 21:04 Interval history: Was restless earlier today. Doing well since morphine increased and scheduled lorazepam resumed. Review of Systems Review of Systems: ROS unobtainable: Yes unobtainable due to medical condition Exam Narrative: HEENT: PERRL, sclerae nonicteric, pharyngeal mucosa pink and intact NECK: No JVD CHEST: Coarse crackles throughout, normal effort HEART: NL S1/S2, regular, no murmur ABDOMEN: BS+, soft, nontender, no mass, no bruits EXTREMITIES: No cyanosis, edema, or clubbing NEUROLOGIC: CN intact and symmetric to inspection, intermittent myoclonic jerks of extremities MUSCULOSKELETAL: No deformity to visual inspection PSYCH: Unresponsive to verbal or tactile stimuli Objective Data Vital Signs Vital Signs: Vital Signs - 24 hr 01/26/25 08:55 01/26/25 09:14 01/26/25 10:05 Temperature 102.6 F H 98.2 F Pulse Rate 78 Respiratory Rate 16 Blood Pressure 167/86 H Oxygen Delivery Room Air Intake/Output Intake/Output: Intake & Output 01/23/25 01/24/25 01/25/25 01/26/25 23:59 23:59 23:59 23:59 Intake Total 22.2 22.8 Balance 22.2 22.8 Meds/Results Medications: Active Medications Generic Name Dose Route Start Last Admin Trade Name Freq PRN Reason Stop Dose Admin Acetaminophen 650 mg 01/26/25 08:54 01/26/25 09:06 Acetaminophen 650 Mg Suppository RECTAL 650 mg Q4H PRN Administration Mild Pain (1-3) or Fever Artificial Tears 1 drop 01/24/25 14:55 Artificial Tears Ophth Soln 15 Ml Bottle EACH EYE Q12H PRN Dry Eye(s) Bisacodyl 10 mg 01/24/25 14:55 Bisacodyl 10 Mg Suppository RECTAL DAILY PRN Constipation Glycopyrrolate 0.1 mg 01/24/25 14:55 01/26/25 17:21 Glycopyrrolate Inj (*Sp) 0.2 Mg/Ml Vial IV PUSH 0.1 mg Q4H PRN Administration secretions Morphine Sulfate 50 mg/ Sodium 100 mls @ 2 mls/hr 01/24/25 15:00 01/26/25 14:12 Chloride IV CONT 1 mg/hr .Q24H STACIE 2 mls/hr Administration 1 MG/HR Lorazepam 1 mg 01/24/25 14:55 01/26/25 11:28 Lorazepam Inj (*Crx) 2 Mg/Ml Vial IV PUSH 1 mg Q2H PRN Administration ANXIETY/RESTLESSNESS Lorazepam 1 mg 01/26/25 15:00 01/26/25 20:32 Lorazepam Inj (*Crx) 2 Mg/Ml Vial IV PUSH 1 mg Q6H STACIE Administration Morphine Sulfate 1 mg 01/24/25 15:00 01/26/25 09:06 Morphine Sulfate (*Crx) 2 Mg/Ml Inj IV PUSH 1 mg Q2H PRN Administration Pain/DYSPNEA Promethazine HCl 12.5 mg 01/24/25 14:56 Promethazine Hcl 25 Mg/Ml Ampul IV PUSH Q4H PRN Nausea And Vomiting
[2025-01-27] MEDS: GLYCOPYRROLATE INJ (*SP) 0.2 MG/ML VIAL 0.1 MG IV PUSH ×3 (03:15→18:12)
[2025-01-27] MEDS: LORazepam INJ (*CRX) 2 MG/ML VIAL 1 MG IV PUSH ×4 (03:15→21:06)
[2025-01-27 08:00] VITALS: BP 105/59; PULSE 85; RESP 18; TEMP 37.1; O2SAT 90
[2025-01-27 14:27] VITALS: PULSE 86; PULSE 87
[2025-01-27] MEDS: MORPHINE SULFATE INJ (*CRX) 50 MG in SODIUM CHLORIDE 0.9% IV 95 ML IV CONT (14:27)
--- NOTE | 2025-01-27 16:29 | P.PNIM_ITS ---
Progress Note: A&P Assessment and Plan (1) Hospice care: Code(s): Z51.5 - Encounter for palliative care Status: Acute Assessment and Plan: * Meet inpatient hospice criteria due to require his IV morphine and scheduled IV Ativan for control of discomfort and agitated * P.r.n. palliative regimen ordered * 01/24/2025 Discussed care and prognosis with spouse at bedside * 01/25/2025 Less responsive with low grade fever. No agitation. D/c'd scheduled lorazepam, continued PRN. Continue low-dose morphine at 0.5 mg/hr. Discussed with spouse at bedside. Condition rapidly declining. * 01/26/2025 Fever to 102.6, coarse crackles throughout both lungs, unresponsive, declining rapidly and required upward titration of medication. * 01/27/2025 Continues febrile with declining BP and unresponsive. Required continous IV morphine and scheduled IV lorazepam for comfort. Discussed care and prognosis with spouse at bedside. (2) Lewy body dementia: Code(s): G31.83 - Neurocognitive disorder with Lewy bodies; F02.80 - Dementia in other diseases classified elsewhere, unspecified severity, without behavioral disturbance, psychotic disturbance, mood disturbance, and anxiety Status: Acute (3) Agitation due to dementia: Code(s): F03.911 - Unspecified dementia, unspecified severity, with agitation Status: Acute (4) Chronic anemia: Code(s): D64.9 - Anemia, unspecified Status: Acute Subjective Date/time seen: 01/27/25 16:29 Interval history: Remains comfortable on current regimen after med changes 01/26. Review of Systems Review of Systems: ROS unobtainable: Yes unobtainable due to medical condition Exam Narrative: HEENT: PERRL, sclerae nonicteric, pharyngeal mucosa pink and intact NECK: No JVD CHEST: Coarse crackles throughout, normal effort HEART: NL S1/S2, regular, no murmur ABDOMEN: BS+, soft, nontender, no mass, no bruits EXTREMITIES: No cyanosis, edema, or clubbing NEUROLOGIC: CN intact and symmetric to inspection, intermittent myoclonic jerks of extremities MUSCULOSKELETAL: No deformity to visual inspection PSYCH: Unresponsive to verbal or tactile stimuli Objective Data Vital Signs Vital Signs: Vital Signs - 24 hr 01/26/25 20:00 01/26/25 20:56 01/27/25 08:00 Temperature 99.9 F H 98.7 F Pulse Rate 76 85 Respiratory Rate 20 18 Blood Pressure 137/78 105/59 L Pulse Oximetry 94 90 Oxygen Delivery Room Air 01/27/25 14:27 01/27/25 14:27 Temperature Pulse Rate 87 86 Respiratory Rate Blood Pressure Pulse Oximetry Oxygen Delivery Intake/Output Intake/Output: Intake & Output 01/24/25 01/25/25 01/26/25 01/27/25 23:59 23:59 23:59 23:59 Intake Total 22.2 22.8 48.5 Output Total 500 Balance 22.2 22.8 -451.5 Meds/Results Medications: Active Medications Generic Name Dose Route Start Last Admin Trade Name Freq PRN Reason Stop Dose Admin Acetaminophen 650 mg 01/26/25 08:54 01/26/25 09:06 Acetaminophen 650 Mg Suppository RECTAL 650 mg Q4H PRN Administration Mild Pain (1-3) or Fever Artificial Tears 1 drop 01/24/25 14:55 Artificial Tears Ophth Soln 15 Ml Bottle EACH EYE Q12H PRN Dry Eye(s) Bisacodyl 10 mg 01/24/25 14:55 Bisacodyl 10 Mg Suppository RECTAL DAILY PRN Constipation Glycopyrrolate 0.1 mg 01/24/25 14:55 01/27/25 08:13 Glycopyrrolate Inj (*Sp) 0.2 Mg/Ml Vial IV PUSH 0.1 mg Q4H PRN Administration secretions Morphine Sulfate 50 mg/ Sodium 100 mls @ 2 mls/hr 01/24/25 15:00 01/27/25 14:27 Chloride IV CONT 1 mg/hr .Q24H STACIE 2 mls/hr Administration 1 MG/HR Lorazepam 1 mg 01/24/25 14:55 01/26/25 11:28 Lorazepam Inj (*Crx) 2 Mg/Ml Vial IV PUSH 1 mg Q2H PRN Administration ANXIETY/RESTLESSNESS Lorazepam 1 mg 01/26/25 15:00 01/27/25 14:21 Lorazepam Inj (*Crx) 2 Mg/Ml Vial IV PUSH 1 mg Q6H STACIE Administration Morphine Sulfate 1 mg 01/24/25 15:00 01/26/25 09:06 Morphine Sulfate (*Crx) 2 Mg/Ml Inj IV PUSH 1 mg Q2H PRN Administration Pain/DYSPNEA Promethazine HCl 12.5 mg 01/24/25 14:56 Promethazine Hcl 25 Mg/Ml Ampul IV PUSH Q4H PRN Nausea And Vomiting
[2025-01-27 20:00] VITALS: BP 124/62; PULSE 72; PULSE 75; RESP 14; RESP 19; TEMP 36.2; O2SAT 89; O2SAT 93
--- NOTE | 2025-01-27 23:03 | PC.NURSE ---
Patient noted with deep gurgles and increased secretions. Suctioning with Yanker provided. Deep gurgles continue. Leo Diop called and gave ok for deep suctioning to be provided but to avoid gaging (per respiratory). Order placed and RT called and made aware.
[2025-01-28] MEDS: GLYCOPYRROLATE INJ (*SP) 0.2 MG/ML VIAL 0.1 MG IV PUSH ×3 (00:54→13:02)
[2025-01-28] MEDS: LORazepam INJ (*CRX) 2 MG/ML VIAL 1 MG IV PUSH ×4 (03:05→21:51)
--- NOTE | 2025-01-28 06:07 | PC.NURSE ---
Patient is resting in bed. Gurgle and secretions have decreased. Patient comfortable at this time.
[2025-01-28 08:00] VITALS: BP 101/54; PULSE 86; PULSE 88; RESP 16; TEMP 36.6; O2SAT 80; O2SAT 85
[2025-01-28 14:08] VITALS: PULSE 83
[2025-01-28] MEDS: MORPHINE SULFATE INJ (*CRX) 50 MG in SODIUM CHLORIDE 0.9% IV 95 ML IV CONT (14:08)
--- NOTE | 2025-01-28 17:19 | P.PNIM_ITS ---
Progress Note: A&P Assessment and Plan (1) Hospice care: Code(s): Z51.5 - Encounter for palliative care Status: Acute Assessment and Plan: * Meet inpatient hospice criteria due to require his IV morphine and scheduled IV Ativan for control of discomfort and agitated * P.r.n. palliative regimen ordered * 01/24/2025 Discussed care and prognosis with spouse at bedside * 01/25/2025 Less responsive with low grade fever. No agitation. D/c'd scheduled lorazepam, continued PRN. Continue low-dose morphine at 0.5 mg/hr. Discussed with spouse at bedside. Condition rapidly declining. * 01/26/2025 Fever to 102.6, coarse crackles throughout both lungs, unresponsive, declining rapidly and required upward titration of medication. * 01/27/2025 Continues febrile with declining BP and unresponsive. Required continuous IV morphine and scheduled IV lorazepam for comfort. Discussed care and prognosis with spouse at bedside. * 01/28/2025 Unstable respiratory status requiring manual intervention as well as continuous IV morphine and scheduled IV lorazepam. Discussed with spouse and daughter at bedside. (2) Lewy body dementia: Code(s): G31.83 - Neurocognitive disorder with Lewy bodies; F02.80 - Dementia in other diseases classified elsewhere, unspecified severity, without behavioral disturbance, psychotic disturbance, mood disturbance, and anxiety Status: Acute (3) Agitation due to dementia: Code(s): F03.911 - Unspecified dementia, unspecified severity, with agitation Status: Acute (4) Chronic anemia: Code(s): D64.9 - Anemia, unspecified Status: Acute Subjective Date/time seen: 01/28/25 17:19 Interval history: Required deep suctioning 5/12 PM due to excess secretions impairing respirations. Review of Systems Review of Systems: ROS unobtainable: Yes unobtainable due to medical condition Exam Narrative: HEENT: PERRL, sclerae nonicteric, pharyngeal mucosa pink and intact NECK: No JVD CHEST: Coarse crackles throughout, normal effort HEART: NL S1/S2, regular, no murmur ABDOMEN: BS+, soft, nontender, no mass, no bruits EXTREMITIES: No cyanosis, edema, or clubbing NEUROLOGIC: CN intact and symmetric to inspection, intermittent myoclonic jerks of extremities MUSCULOSKELETAL: No deformity to visual inspection PSYCH: Unresponsive to verbal or tactile stimuli Objective Data Vital Signs Vital Signs: Vital Signs - 24 hr 01/27/25 20:00 01/27/25 20:00 01/28/25 08:00 Temperature 97.1 F L 97.8 F Pulse Rate 72 75 86 Respiratory Rate 19 14 16 Blood Pressure 124/62 101/54 L Pulse Oximetry 89 L 93 85 L Oxygen Delivery Room Air 01/28/25 08:00 01/28/25 14:08 01/28/25 14:08 Temperature Pulse Rate 88 83 83 Respiratory Rate Blood Pressure Pulse Oximetry 80 L Oxygen Delivery Room Air Intake/Output Intake/Output: Intake & Output 01/25/25 01/26/25 01/27/25 01/28/25 23:59 23:59 23:59 23:59 Intake Total 22.2 22.8 48.5 47.4 Output Total 500 100 Balance 22.2 22.8 -451.5 -52.6 Meds/Results Medications: Active Medications Generic Name Dose Route Start Last Admin Trade Name Freq PRN Reason Stop Dose Admin Acetaminophen 650 mg 01/26/25 08:54 01/26/25 09:06 Acetaminophen 650 Mg Suppository RECTAL 650 mg Q4H PRN Administration Mild Pain (1-3) or Fever Artificial Tears 1 drop 01/24/25 14:55 Artificial Tears Ophth Soln 15 Ml Bottle EACH EYE Q12H PRN Dry Eye(s) Bisacodyl 10 mg 01/24/25 14:55 Bisacodyl 10 Mg Suppository RECTAL DAILY PRN Constipation Glycopyrrolate 0.1 mg 01/24/25 14:55 01/28/25 13:02 Glycopyrrolate Inj (*Sp) 0.2 Mg/Ml Vial IV PUSH 0.1 mg Q4H PRN Administration secretions Morphine Sulfate 50 mg/ Sodium 100 mls @ 2 mls/hr 01/24/25 15:00 01/28/25 14:08 Chloride IV CONT 1 mg/hr .Q24H STACIE 2 mls/hr Administration 1 MG/HR Lorazepam 1 mg 01/24/25 14:55 01/26/25 11:28 Lorazepam Inj (*Crx) 2 Mg/Ml Vial IV PUSH 1 mg Q2H PRN Administration ANXIETY/RESTLESSNESS Lorazepam 1 mg 01/26/25 15:00 01/28/25 14:16 Lorazepam Inj (*Crx) 2 Mg/Ml Vial IV PUSH 1 mg Q6H STACIE Administration Morphine Sulfate 1 mg 01/24/25 15:00 01/26/25 09:06 Morphine Sulfate (*Crx) 2 Mg/Ml Inj IV PUSH 1 mg Q2H PRN Administration Pain/DYSPNEA Promethazine HCl 12.5 mg 01/24/25 14:56 Promethazine Hcl 25 Mg/Ml Ampul IV PUSH Q4H PRN Nausea And Vomiting
[2025-01-28 20:35] VITALS: BP 119/65; PULSE 80; RESP 28; TEMP 37.4; O2SAT 80
--- NOTE | 2025-01-29 01:21 | PC.NURSE ---
I was called into Pt's room at 0115 by Pt's . stated that she thinks that he has passed. Assessed respirations and heart sounds. No respirations or heart sounds noted by myself and Audrey Pierce RN. Charge nurse informed of Pt. expiring.
--- NOTE | 2025-01-29 17:19 | P.DN_ITS ---
Discharge Summary Date and Time Date of : 01/29/25 Time of : 01:15 Provider Pronounced By: 2 RNs Name of First RN That Pronounced: Marce Montesinos Name of Second RN That Pronounced: Lokesh Valencia Probable Cause of Probable Cause of : Lewey Body Dementia Summary Hospital Course: Admitted to inpatient hospice service uncontrolled agitation a to stage dementia. Medications were titrated to comfort. Mr. Aquino peacefully. Additional Data Confirmation of as documented by pronouncing clinician: Pupillary Reflex, Palpable Pulses, Response to Stimuli, Heart Tones and Breath Sounds Name of Provider Notified: Dr. Richmond Time Provider Notified: 01:35 Provider Requests Autopsy: No Family Requests Autopsy: No Financial Business Analyst Notified: Yes Date [facility] Notified of : 01/29/25 Time [facility] Notified of : 01:26
== END 2025-01-29 03:45 | disposition expired | DRG 951 ==
LOC: ANHIMU 14:11 → ANH3MEDSUR 16:59
PROVIDERS: Admitting Provider Internal Medicine; PCP Family Medicine; Visit Provider Internal Medicine
DX: Z51.5 Encounter for palliative care (principal); F02.811 Dementia in other diseases classified elsewhere, unspecified severity, with agitation; G31.83 Neurocognitive disorder with Lewy bodies; G20.A1 Parkinson's disease without dyskinesia, without mention of fluctuations; I25.10 Atherosclerotic heart disease of native coronary artery without angina pectoris; I10 Essential (primary) hypertension; E78.5 Hyperlipidemia, unspecified; D64.9 Anemia, unspecified; I25.2 Old myocardial infarction; Z95.5 Presence of coronary angioplasty implant and graft
CPT/HCPCS: A9270; J1596; J2060; J2270